=== PATIENT | female | born 1995 | race African-American/Black ===

== ENCOUNTER 2017-03-02 13:14 | Emergency (ER) | payer SELFPAY ==
[2017-03-02 13:20] VITALS: BMI 24.7
[2017-03-02] MEDS ORDERED: ONDANSETRON 4 MG/2 ML VIAL IVPUSH ONE ×2 (13:46→15:03)
[2017-03-02] MEDS ORDERED: SODIUM CHLORIDE 1,000 ML IV STA (13:46)
[2017-03-02] MEDS ORDERED: FAMOTIDINE IV 20 MG/12 ML VIAL IVPUSH ONE (13:46)
[2017-03-02] MEDS ORDERED: ONDANSETRON 4 MG/2 ML VIAL ONE ×2 (13:49→15:05)
[2017-03-02] MEDS ORDERED: FAMOTIDINE 20 MG/50 ML IVPB 20 MG/50 ML MG IVPB ONE (13:49)
--- NOTE | 2017-03-02 13:56 | PDOC ---
History of Present Illness - General Chief Complaint: Nausea/Vomiting Stated Complaint: VOMITING Time Seen by Provider: 03/02/17 13:43 History Source: Patient - History of Present Illness Timing/Duration: reports: other (this am) Quality: reports: severe Abdominal Pain Onset Location: reports: epigastric Past History - Past Medical History Allergies/Adverse Reactions: Allergies Allergy/AdvReac Type Severity Reaction Status Date / Time No Known Allergies Allergy Verified 03/02/17 13:20 Home Medications: Ambulatory Orders Ondansetron HCl [Zofran] 4 mg PO Q8H #12 tablet 03/02/17 CVA: No COPD: No DVT: No - Reproductive History Therapeutic (s) & number: Yes (2) - Immunization History Immunization Up to Date: Yes (no flu shot) - Suicide/Smoking/Psychosocial Hx Smoking History: Never smoked Have you smoked in the past 12 months: No Hx Alcohol Use: Yes (SOCIAL) Drug/Substance Use Hx: No Substance Use Type: None Abd/GI Specific PMHX - Complaint Specific PMHX Colitis: No Diverticulitis: No Gall Bladder Disease: No GERD: No Hepatitis: No Irritable Bowel Synd (IBS): No Pancreatitis: No GI Ulcer Disease: No Review of Systems - Review of Systems Constitutional: No: Chills, Fever ABD/GI: Yes: Nausea, Vomiting. No: Constipated, Diarrhea *Physical Exam - Vital Signs Last Vital Signs Temp Pulse Resp BP Pulse Ox 76 26 H 143/94 100 03/02/17 13:15 03/02/17 13:15 03/02/17 13:15 03/02/17 13:15 - Physical Exam Comments: 03/02/17 13:56 Pt appears very uncomfortable and actively vomiting into an emesis bag General Appearance: Yes: Appropriately Dressed, Severe Distress Neck: positive: Supple Respiratory/Chest: positive: Lungs Clear, Normal Breath Sounds. negative: Respiratory Distress Cardiovascular: positive: Regular Rate, S1, S2 Gastrointestinal/Abdominal: positive: Normal Bowel Sounds, Tender. negative: Distended, Guarding, Rebound Musculoskeletal: negative: CVA Tenderness Integumentary: positive: Dry, Warm Neurologic: positive: Fully Oriented, Alert, Normal Mood/Affect ED Treatment Course - LABORATORY CBC & Chemistry Diagram: 03/02/17 14:00 03/02/17 14:00 Medical Decision Making - Medical Decision Making 03/02/17 13:54 22-year-old female, denies any past medical history here with severe upper abdominal pain with intractable nausea, vomiting since 8:00 this morning. Patient states she went out drinking last night and had "a lot of Bell" and "feels hung over" per patient. No hematemesis, change in bowel movements, fever or chills See exam N/V m/l 2/2 ETOH use Review vomiting in ED, no hematemesis with positive tenderness to palpation to epigastrium -Pain control, Zofran, fluids -Basic labs -Reassess 03/02/17 15:11 Utox positive for marijuana. Rest of labs unremarkable. Will continue to manage patient's symptoms in ER 03/02/17 16:28 Pt significantly improved with meds in ED and able to tolerate po. Will discharge with supportive treatment. Reasons to return discussed with patient *DC/Admit/Observation/Transfer Diagnosis at time of Disposition: Nausea and vomiting Qualifiers: Vomiting type: unspecified Vomiting Intractability: non-intractable Qualified Code(s): R11.2 - Nausea with vomiting, unspecified - Discharge Dispostion Disposition: HOME Condition at time of disposition: Improved - Prescriptions Prescriptions: Ondansetron HCl [Zofran] 4 mg PO Q8H #12 tablet - Referrals Referrals: George Garcia MD [Primary Care Provider] - - Patient Instructions Printed Discharge Instructions: DI for Vomiting -- Adult Additional Instructions: Your symptoms possibly secondary to excessive alcohol intake versus marijuana found on your urine screen. Daily marijuana use and cause cyclical nausea, vomiting, and it is strongly recommended that you stop using. Also limit your alcohol intake in the future to prevent recurrent symptoms. Rest and plenty of fluids and take Zofran as needed for nausea, vomiting. If symptoms worsen, return to ER - Post Discharge Activity Forms/Work/School Notes: Back to Work
[2017-03-02 14:04] LABS: EOS % 0.4 % (0-4.5); HEMATOCRIT 40.5 % (32.4-45.2); HEMOGLOBIN 13.6 GM/dL (10.7-15.3); LYMPH % 17.5 % (8-40); MCH 28.3 pg (25.7-33.7); MCHC 33.5 g/dl (32.0-36.0); MEAN CELL VOLUME 84.4 fl (80-96); MEAN PLT VOLUME 9.4 fl (7.5-11.1); MONO % 3.7 % (3.8-10.2); NEUT % 77.4 % (42.8-82.8); PLATELET COUNT 228 K/MM3 (134-434); RDW 13.6 % (11.6-15.6); WHITE BLOOD COUNT 6.9 K/mm3 (4.0-10.0)
--- NOTE | 2017-03-02 14:14 | PDOC ---
*Physical Exam - Vital Signs Last Vital Signs Temp Pulse Resp BP Pulse Ox 76 26 H 143/94 100 03/02/17 13:15 03/02/17 13:15 03/02/17 13:15 03/02/17 13:15 ED Treatment Course - LABORATORY CBC & Chemistry Diagram: 03/02/17 14:00 03/02/17 14:00 - ADDITIONAL ORDERS Additional order review: 03/02/17 14:00 RBC 4.80 MCV 84.4 MCHC 33.5 RDW 13.6 MPV 9.4 Neutrophils % 77.4 Lymphocytes % 17.5 D Monocytes % 3.7 L Eosinophils % 0.4 D Basophils % 1.0 - Medications Given in the ED: ED Medications Discontinued Medications Generic Name Dose Route Start Last Admin Trade Name Carlin PRN Reason Stop Dose Admin Famotidine 20 mg in 12 mls @ 144 mls/hr 03/02/17 13:46 03/02/17 14:02 Pepcid 20 Mg/12 Ml Push IVPUSH 03/02/17 13:50 144 mls/hr ONCE ONE Administration Ondansetron HCl 4 mg 03/02/17 13:46 03/02/17 14:02 Zofran Injection IVPUSH 03/02/17 13:47 4 mg ONCE ONE Administration Medical Decision Making - Medical Decision Making 03/02/17 14:13 Pt seen by the Advanced Practice Provider under my direct supervision Ancillary studies reviewed I agree with plan as outlined by the Advanced Practice Provider RUSSELL Segura *DC/Admit/Observation/Transfer - Referrals Referrals: George Garcia MD [Primary Care Provider] - - Patient Instructions - Post Discharge Activity
[2017-03-02] MEDS ORDERED: LORazepam 1 MG TABLET PO ONE (14:23)
[2017-03-02] MEDS ORDERED: LORazepam 0.5 MG TABLET ONE (14:27)
[2017-03-02 14:34] LABS: ALK PHOS 62 U/L (45-117); ANION GAP 13 (8-16); BILIRUBIN,TOTAL 0.6 mg/dL (0.2-1.0); BLOOD UREA NITROGEN 11 mg/dL (7-18); CALCIUM 8.7 mg/dL (8.5-10.1); CHLORIDE 109 mmol/L (98-107); CO2 19 mmol/L (21-32); CREATININE 0.7 mg/dL (0.55-1.02); GLUCOSE,RANDOM 103 mg/dL (74-106); SGPT/ALT 25 U/L (12-78); SODIUM 141 mmol/L (136-145); TOT PROT 7.8 g/dl (6.4-8.2)
[2017-03-02 14:36] LABS: POTASSIUM 3.7 mmol/L (3.5-5.1)
[2017-03-02 14:37] LABS: SGOT/AST 28 U/L (15-37)
[2017-03-02 14:40] LABS: PLATELET ESTIMATE ADEQUATE
[2017-03-02] MEDS ORDERED: morphine CARPU-JECT 4 MG/1 ML DISP.SYRIN IVPUSH ONE (14:52)
[2017-03-02] MEDS ORDERED: morphine CARPU-JECT 10 MG/1 ML DISP.SYRIN ONE (14:55)
[2017-03-02 15:03] LABS: COCAINE, UR NEGATIVE ng/ml (CUTOFF=300); METHADONE, UR NEGATIVE ng/ml (CUTOFF=300); OPIATES, URI NEGATIVE ng/ml (CUTOFF=300); PHENCYCLIDINE,URINE NEGATIVE ng/ml (CUTOFF=25); URINE AMPHETAMINES NEGATIVE ng/ml (CUTOFF=500); URINE BARBITURATES NEGATIVE ng/ml (CUTOFF=200); URINE BENZODIAZEPINES NEGATIVE ng/ml (CUTOFF=200)
[2017-03-02 15:11] LABS: LIPASE 92 U/L (73-393)
[2017-03-02 16:54] VITALS: BP 105/63; PULSE 80
== END 2017-03-02 16:53 | disposition home or self-care (01) ==
LOC: JER 13:14
PROC: 3E033NZ Introduction of Analgesics, Hypnotics, Sedatives into Peripheral Vein, Percutaneous Approach (ICD-10-PCS; principal; 2017-03-02)
PROC: 3E033GC Introduction of Other Therapeutic Substance into Peripheral Vein, Percutaneous Approach (ICD-10-PCS; 2017-03-02)
PROC: 3E033GC Introduction of Other Therapeutic Substance into Peripheral Vein, Percutaneous Approach (ICD-10-PCS; 2017-03-02)
PROC: 3E033GC Introduction of Other Therapeutic Substance into Peripheral Vein, Percutaneous Approach (ICD-10-PCS; 2017-03-02)
DX: R11.2 Nausea with vomiting, unspecified (principal); F12.10 Cannabis abuse, uncomplicated; F10.10 Alcohol abuse, uncomplicated
CPT/HCPCS: 36415; 80053; 80307; 83690; 84703; 85025; 99282-25

== ENCOUNTER 2017-06-14 11:31 | Emergency (ER) | payer SELFPAY ==
[2017-06-14 11:37] VITALS: BMI 27.1
[2017-06-14] MEDS ORDERED: SODIUM CHLORIDE 1,000 ML IV STA ×2 (12:05→14:59)
[2017-06-14] MEDS ORDERED: ONDANSETRON 4 MG/2 ML VIAL IVPUSH ONE (12:05)
[2017-06-14] MEDS ORDERED: FAMOTIDINE IV 20 MG/12 ML VIAL IVPB ONE (12:05)
--- NOTE | 2017-06-14 12:06 | PDOC ---
History of Present Illness - General Chief Complaint: Pain Stated Complaint: Nausea/Vomiting Time Seen by Provider: 06/14/17 11:48 History Source: Patient Exam Limitations: No Limitations - History of Present Illness Initial Comments: 06/14/17 12:12 Patient is a 22-year-old female with PMH of cyclical vomiting, who presents emergency department today complaining of nausea and vomiting. 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 Patient states that she also smoked marijuana last night. Admits to abdominal pain, nausea, vomiting. Denies fevers, chills, shortness of breath, frequency, urgency, hematuria, diarrhea and constipation. Past History - Travel Traveled outside of the country in the last 30 days: No Close contact w/someone who was outside of country & ill: No - Past Medical History Allergies/Adverse Reactions: Allergies Allergy/AdvReac Type Severity Reaction Status Date / Time No Known Allergies Allergy Verified 06/14/17 11:33 Home Medications: Ambulatory Orders Famotidine [Pepcid -] 40 mg PO DAILY #14 tablet 04/13/17 Ondansetron [Zofran *Odt*] 8 mg SL TID PRN #30 od.tablet 04/13/17 CVA: No COPD: No DVT: No - Reproductive History Therapeutic (s) & number: Yes (2) - Immunization History Immunization Up to Date: Yes (no flu shot) - Suicide/Smoking/Psychosocial Hx Smoking History: Never smoked Have you smoked in the past 12 months: No Information on smoking cessation initiated: No Hx Alcohol Use: No Drug/Substance Use Hx: No Substance Use Type: Marijuana Review of Systems - Review of Systems Able to Perform ROS?: Yes Comments:: 06/14/17 12:04 CONSTITUTIONAL: Absent: fever, chills, diaphoresis, generalized weakness, malaise, loss of appetite HEENT: Absent: rhinorrhea, nasal congestion, throat pain, throat swelling, difficulty swallowing, mouth swelling, ear pain, eye pain, visual Changes CARDIOVASCULAR: Absent: chest pain, loss of consciousness, palpitations, irregular heart rate, peripheral edema RESPIRATORY: Absent: cough, shortness of breath, dyspnea with exertion, orthopnea, wheezing, stridor, hemoptysis GASTROINTESTINAL: Present: abdominal pain, nausea, vomiting Absent: abdominal pain, abdominal distension, nausea, vomiting, diarrhea, constipation, melena, hematochezia GENITOURINARY: Absent: dysuria, frequency, urgency, hesitancy, hematuria, flank pain, genital pain MUSCULOSKELETAL: Absent: myalgia, arthralgia, joint swelling SKIN: Absent: rash, itching, pallor HEMATOLOGIC/IMMUNOLOGIC: Absent: easy bleeding, easy bruising, lymphadenopathy, frequent infections ENDOCRINE: Absent: unexplained weight gain, unexplained weight loss, heat intolerance, cold intolerance NEUROLOGIC: Absent: headache, focal weakness or paresthesias, dizziness, unsteady gait, seizure, mental status changes, bladder or bowel incontinence PSYCHIATRIC: Absent: anxiety, depression, suicidal or homicidal ideation, hallucinations. Is the patient limited Chadian proficient: No *Physical Exam - Vital Signs Last Vital Signs Temp Pulse Resp BP Pulse Ox 98.4 F 56 L 18 153/89 100 06/14/17 11:33 06/14/17 11:33 06/14/17 11:33 06/14/17 11:33 06/14/17 11:33 - Physical Exam Comments: 06/14/17 12:04 GENERAL: Well developed, well nourished. Awake and alert. Mild distress, actively vomiting in the ED HEENT: Normocephalic, atraumatic. PERRLA, EOMI. No conjunctival pallor. Sclera are non- icteric. Moist mucous membranes. Oropharynx is clear. NECK: Supple. Full ROM. No JVD. Carotid pulses 2+ and symmetric, without bruits. No thyromegaly. No lymphadenopathy. CARDIOVASCULAR: Regular rate and rhythm. No murmurs, rubs, or gallops. Distal pulses are 2+ and symmetric. PULMONARY: No evidence of respiratory distress. Lungs clear to auscultation bilaterally. No wheezing, rales or rhonchi. ABDOMINAL: Soft. Diffuse tenderness with no focal findings. Non-distended. No rebound or guarding. No organomegaly. Normoactive bowel sounds. MUSCULOSKELETAL Normal range of motion at all joints. No bony deformities or tenderness. No CVA tenderness. EXTREMITIES: No cyanosis. No clubbing. No edema. No calf tenderness. SKIN: Warm and dry. Normal capillary refill. No rashes. No jaundice. NEUROLOGICAL: Alert, awake, appropriate. Cranial nerves 2-12 intact. No deficits to light touch and temperature in face, upper extremities and lower extremities. No motor deficits in the in face, upper extremities and lower extremities. Normoreflexic in the upper and lower extremities. Normal speech. Toes are down- going bilaterally. Gait is normal without ataxia. PSYCHIATRIC: Cooperative. Good eye contact. Appropriate mood and affect. ED Treatment Course - LABORATORY CBC & Chemistry Diagram: 06/14/17 12:05 06/14/17 12:10 Medical Decision Making - Medical Decision Making 06/14/17 12:15 Patient is a 22-year-old female with past medical history of marijuana abuse, cyclical vomiting, who presents to the emergency department today complaining of nausea and vomiting since 7 AM. Patient actively vomiting bright yellow bile at this time, no focal abdominal tenderness on exam. Given the context of sick children and marijuana use most likely a viral gastroenteritis amplified by marijuana use. We will order basic labs and medications to treat symptoms. Reevaluate. Informed patient that she needs to stop smoking marijuana as this is most likely causing her pain. Pt. states that marijuana has never made her feel like this before. 06/14/17 15:30 Patient still complaining of abdominal pain nausea and vomiting despite treatment with Pepcid, Reglan, Benadryl, Zofran, Toradol and ofirmev. Patient observed in the holding area sleeping prior to arrival to check on her. Other staff members have also observed her sleeping. Nursing noticed her stick her hand on her throat to try and make herself vomit. At this time given cyclic vomiting, will give Haldol and Ativan to relieve her symptoms. 06/14/17 18:32 Patient sleeping in the emergency department. No further episodes of vomiting. May be discharged when patient is awake. 06/14/17 19:00 sign out given to RUSSELL Mckeon. Pt may be discharged when awake *DC/Admit/Observation/Transfer Diagnosis at time of Disposition: Nausea and vomiting Qualifiers: Vomiting type: cyclical vomiting Vomiting Intractability: non-intractable Qualified Code(s): G43.A0 - Cyclical vomiting, not intractable - Discharge Dispostion Disposition: HOME Condition at time of disposition: Stable Admit: No - Referrals Referrals: James Garcia MD [Primary Care Provider] - - Patient Instructions Printed Discharge Instructions: DI for Vomiting -- Adult Additional Instructions: Stop smoking marijuana. Please drink plenty of fluids. Eat bland diet for the next couple days including bananas, applesauce, toast, rice. Avoid all dairy products until 48 hours after vomiting. Please follow-up with your primary care doctor. Return to the emergency department if you have worsening vomiting, worsening abdominal pain, fevers, or have any changes in your symptoms. - Post Discharge Activity Forms/Work/School Notes: Back to Work
[2017-06-14] MEDS ORDERED: ONDANSETRON 4 MG/2 ML VIAL ONE (12:11)
[2017-06-14] MEDS ORDERED: FAMOTIDINE 20 MG/50 ML IVPB 20 MG/50 ML MG IVPB ONE (12:11)
[2017-06-14 12:24] LABS: BASO % 0.9 % (0-2.0); HEMATOCRIT 39.6 % (32.4-45.2); HEMOGLOBIN 13.7 GM/dL (10.7-15.3); LYMPH % 14.8 % (8-40); MCH 29.3 pg (25.7-33.7); MCHC 34.7 g/dl (32.0-36.0); MEAN CELL VOLUME 84.6 fl (80-96); MEAN PLT VOLUME 9.5 fl (7.5-11.1); MONO % 2.7 % (3.8-10.2); NEUT % 81.6 % (42.8-82.8); PLATELET COUNT 204 K/MM3 (134-434); RBC 4.68 M/mm3 (3.60-5.2); RDW 15.7 % (11.6-15.6)
[2017-06-14 12:37] LABS: INR 1.04 (0.82-1.09); PROTHROMBIN TIME (PATIENT) 11.7 SEC (9.7-13.0)
[2017-06-14] MEDS ORDERED: METOCLOPRAMIDE HCL INJECTION 10 MG/2 ML VIAL IVPB ONE (12:42)
[2017-06-14 12:48] LABS: ANION GAP 10 (8-16); BILIRUBIN,TOTAL 0.7 mg/dL (0.2-1.0); BLOOD UREA NITROGEN 11 mg/dL (7-18); CALCIUM 8.8 mg/dL (8.5-10.1); CHLORIDE 112 mmol/L (98-107); CO2 20 mmol/L (21-32); CREATININE 0.9 mg/dL (0.55-1.02); GLUCOSE,RANDOM 144 mg/dL (74-106); LIPASE 93 U/L (73-393); POTASSIUM 3.5 mmol/L (3.5-5.1); SGOT/AST 24 U/L (15-37); SGPT/ALT 21 U/L (12-78); SODIUM 142 mmol/L (136-145); TOT PROT 7.8 g/dl (6.4-8.2)
[2017-06-14 12:50] LABS: ALK PHOS 60 U/L (45-117)
[2017-06-14] MEDS ORDERED: ACETAMINOPHEN 1000 MG/100 ML VIAL (NON FORMULARY) IVPB ONE (12:57)
[2017-06-14] MEDS ORDERED: METOCLOPRAMIDE HCL INJECTION 10 MG/2 ML VIAL ONE (13:01)
[2017-06-14] MEDS ORDERED: ACETAMINOPHEN INJECTION 100 ML IVPB ONE (13:01)
[2017-06-14 13:33] LABS: URINE APPEARANCE CLEAR; URINE BILIRUBIN NEGATIVE (<2.0 mg/dL); URINE BLOOD NEGATIVE (NEGATIVE); URINE COLOR LTYELLOW; URINE GLUCOSE (UA) NEGATIVE (NEGATIVE); URINE KETONE TRACE (NEGATIVE); URINE LEUK ESTERASE NEGATIVE (NEGATIVE); URINE NITRITE NEGATIVE (NEGATIVE); URINE PROTEIN NEGATIVE (NEGATIVE); URINE UROBILINOGEN NEGATIVE mg/dL (0.2-1.0)
[2017-06-14] MEDS ORDERED: KETOROLAC TROMETHAMINE 30 MG/1 ML VIAL IVPUSH ONE (14:19)
[2017-06-14] MEDS ORDERED: KETOROLAC TROMETHAMINE 30 MG/1 ML VIAL ONE (14:32)
[2017-06-14] MEDS ORDERED: MAG HYDROX/AL HYDROX/SIMETH 30 ML UNIT-DOSE CUP PO ONE (15:02)
[2017-06-14] MEDS ORDERED: HALOPERIDOL LACTATE 5 MG/ML IM ONE (15:02)
[2017-06-14] MEDS ORDERED: HALOPERIDOL LACTATE 5 MG/ML ONE (15:19)
[2017-06-14] MEDS ORDERED: MAG HYDROX/AL HYDROX/SIMETH 30 ML UNIT-DOSE CUP ONE (15:20)
[2017-06-14 17:20] VITALS: BP 138/67; PULSE 59; TEMP 98.1
--- NOTE | 2017-06-15 11:32 | EKG ---
Test Reason : Blood Pressure : / mmHG Vent. Rate : 058 BPM Atrial Rate : 058 BPM P-R Int : 158 ms QRS Dur : 078 ms QT Int : 460 ms P-R-T Axes : 016 072 079 degrees QTc Int : 451 ms SINUS BRADYCARDIA WITH SINUS ARRHYTHMIA OTHERWISE NORMAL ECG NO PREVIOUS ECGS AVAILABLE Confirmed by MAR BELTRAN, ELMA ([id number]) on 06/15/2017 11:31:43 AM Referred By: Confirmed By:ELMA MANUEL MD
== END 2017-06-15 01:08 | disposition home or self-care (01) ==
LOC: JER 11:31
PROC: 3E0337Z Introduction of Electrolytic and Water Balance Substance into Peripheral Vein, Percutaneous Approach (ICD-10-PCS; principal; 2017-06-14)
PROC: 3E033NZ Introduction of Analgesics, Hypnotics, Sedatives into Peripheral Vein, Percutaneous Approach (ICD-10-PCS; 2017-06-14)
PROC: 3E033GC Introduction of Other Therapeutic Substance into Peripheral Vein, Percutaneous Approach (ICD-10-PCS; 2017-06-14)
PROC: 3E023GC Introduction of Other Therapeutic Substance into Muscle, Percutaneous Approach (ICD-10-PCS; 2017-06-14)
DX: G43.A0 Cyclical vomiting, in migraine, not intractable (principal)
CPT/HCPCS: 36415; 80053; 81003; 83690; 84702; 85025; 85610; 87086; 93005; 93010; 99283-25; J0131; J7030

== ENCOUNTER 2017-08-11 07:20 | Emergency (ER) | payer SELFPAY ==
[2017-08-11 07:30] VITALS: BMI 23.8
[2017-08-11] MEDS ORDERED: HALOPERIDOL LACTATE 5 MG/ML IM ONE ×2 (07:43→08:18)
[2017-08-11] MEDS ORDERED: METOCLOPRAMIDE HCL INJECTION 10 MG/2 ML VIAL IVPUSH ONE (07:46)
[2017-08-11] MEDS ORDERED: SODIUM CHLORIDE 1,000 ML IV STA (07:46)
[2017-08-11] MEDS ORDERED: METOCLOPRAMIDE HCL INJECTION 10 MG/2 ML VIAL ONE (07:49)
[2017-08-11] MEDS ORDERED: FAMOTIDINE 20 MG/50 ML IVPB 20 MG/50 ML MG IVPB ONE ×2 (07:57→08:04)
[2017-08-11 08:00] LABS: BASO % 0.7 % (0-2.0); EOS % 0.1 % (0-4.5); HEMATOCRIT 38.9 % (32.4-45.2); HEMOGLOBIN 13.8 GM/dL (10.7-15.3); LYMPH % 17.7 % (8-40); MCH 29.9 pg (25.7-33.7); MCHC 35.5 g/dl (32.0-36.0); MEAN CELL VOLUME 84.4 fl (80-96); MEAN PLT VOLUME 9.2 fl (7.5-11.1); MONO % 4.6 % (3.8-10.2); NEUT % 76.9 % (42.8-82.8); PLATELET COUNT 215 K/MM3 (134-434); RDW 14.2 % (11.6-15.6); WHITE BLOOD COUNT 7.3 K/mm3 (4.0-10.0)
--- NOTE | 2017-08-11 08:11 | PDOC ---
History of Present Illness - General Chief Complaint: Pain, Acute Stated Complaint: ABDOMINAL PAIN Time Seen by Provider: 08/11/17 07:40 History Source: Patient Exam Limitations: No Limitations - History of Present Illness Initial Comments: 08/11/17 08:11 Patient is a 22F with history of cyclic vomiting here today complaining of vomiting and epigastric abdominal pain for the past two days. Denies fevers, chills. Patient is requesting a test. She describes her pain as epigastric after vomiting. Patient endorses smoking marijuana every day. Her symptoms are relieved with showers. Denies pain with urination. Past History - Past Medical History Allergies/Adverse Reactions: Allergies Allergy/AdvReac Type Severity Reaction Status Date / Time No Known Allergies Allergy Verified 08/11/17 07:27 Home Medications: Ambulatory Orders Nitrofurantoin Monohyd/M-Cryst [Nitrofurantoin [place]-Mcr 100 mg] 100 mg PO BID # 14 capsule 08/11/17 Ondansetron [Zofran *Odt*] 8 mg SL BID PRN #21 od.tablet 08/11/17 CVA: No COPD: No DVT: No Other medical history: DENIES - Reproductive History Therapeutic (s) & number: Yes (2) - Immunization History Immunization Up to Date: Yes (no flu shot) - Suicide/Smoking/Psychosocial Hx Smoking History: Never smoked Have you smoked in the past 12 months: No Hx Alcohol Use: No Drug/Substance Use Hx: No Substance Use Type: Marijuana Review of Systems - Review of Systems Comments:: 08/11/17 08:14 GENERAL/CONSTITUTIONAL: No fever or chills. No weakness. HEAD, EYES, EARS, NOSE AND THROAT: No change in vision. No sore throat. CARDIOVASCULAR: No chest pain or shortness of breath RESPIRATORY: No cough, wheezing, or hemoptysis. GASTROINTESTINAL: + nausea, vomiting, diarrhea. GENITOURINARY: No dysuria, frequency, or change in urination. MUSCULOSKELETAL: No joint or muscle swelling or pain. No neck or back pain. SKIN: No rash NEUROLOGIC: No headache, vertigo, loss of consciousness, or change in strength/ sensation. ENDOCRINE: No increased thirst. No abnormal weight change ALLERGIC/IMMUNOLOGIC: No hives or skin allergy. *Physical Exam - Vital Signs Last Vital Signs Temp Pulse Resp BP Pulse Ox 97.9 F 104 H 20 118/52 97 08/11/17 07:27 08/11/17 07:27 08/11/17 07:27 08/11/17 07:27 08/11/17 07:27 - Physical Exam Comments: 08/11/17 08:15 GENERAL: Awake, alert, and fully oriented, vomiting into bag HEAD: No signs of trauma, normocephalic, atraumatic EYES: PERRLA, EOMI, sclera anicteric, conjunctiva clear ENT: Auricles normal inspection, hearing grossly normal, nares patent, oropharynx clear without exudates. Moist mucosa NECK: Normal ROM, supple, no lymphadenopathy, JVD, or masses LUNGS: No distress, speaks full sentences, clear to auscultation bilaterally HEART: Regular rate and rhythm, normal S1 and S2, no murmurs, rubs or gallops, peripheral pulses normal and equal bilaterally. ABDOMEN: Soft, nontender, normoactive bowel sounds. No guarding, no rebound. No masses EXTREMITIES: Normal inspection, Normal range of motion, no edema. No clubbing or cyanosis. NEUROLOGICAL: Cranial nerves II through XII grossly intact. Normal speech, normal gait, no focal sensorimotor deficits SKIN: Warm, Dry, normal turgor, no rashes or lesions noted. ED Treatment Course - LABORATORY CBC & Chemistry Diagram: 08/11/17 07:52 08/11/17 07:52 - ADDITIONAL ORDERS Additional order review: 08/11/17 07:52 RBC 4.60 MCV 84.4 MCHC 35.5 RDW 14.2 MPV 9.2 Neutrophils % 76.9 Lymphocytes % 17.7 Monocytes % 4.6 Eosinophils % 0.1 D Basophils % 0.7 - Medications Given in the ED: ED Medications Discontinued Medications Generic Name Dose Route Start Last Admin Trade Name Freq PRN Reason Stop Dose Admin Metoclopramide HCl 10 mg 08/11/17 07:46 08/11/17 07:57 Reglan Injection - IVPUSH 08/11/17 07:47 10 mg ONCE ONE Administration Medical Decision Making - Medical Decision Making 08/11/17 08:16 Patient is 22F with history of cyclic vomiting here today with vomiting. Vital signs notable for tachycardia. Differential is weighted towards cyclic vomiting , will also evaluate for , pancreatitis, electrolyte abnormalities. Will workup with abdominal labs, reglan. After initial treatment, patient still in distress. Patient's old EKG shows normal QTc. Will give 5 haldol IM. 08/11/17 09:43 Laboratory Tests 08/11/17 08/11/17 08/11/17 07:52 07:52 08:36 WBC 7.3 Hgb 13.8 Plt Count 215 BUN 7 Creatinine 0.7 Serum , Qual Positive Urine Nitrite Ur Leukocyte Esterase Urine WBC (Auto) Ur Epithelial Cells 08/11/17 08:38 WBC Hgb Plt Count BUN Creatinine Serum , Qual Urine Nitrite Negative Ur Leukocyte Esterase Trace Urine WBC (Auto) 8 Ur Epithelial Cells Moderate CBC normal. UA shows possible UTI, will cover given status. CMP reassuring. Beta-quant added, patient still complaining of nausea, given zofran. Patient complaining of diffuse abdominal pain, given tylenol IV. No vaginal bleeding, no need for type and screen at this time. 08/11/17 10:34 Patient reassessed, resting comfortably but still complaining of nausea. [facility] [place] 42k, will do tvus to r/o ectopic. 08/11/17 11:48 TVUS shows single live IUP [id number]. Will PO challenge and discharge with zofran. 08/11/17 11:52 Passed PO challenge. *DC/Admit/Observation/Transfer Diagnosis at time of Disposition: Nausea and vomiting, - Discharge Dispostion Condition at time of disposition: Good Decision to Admit order: No - Prescriptions Prescriptions: Nitrofurantoin Monohyd/M-Cryst [Nitrofurantoin [place]-Mcr 100 mg] 100 mg PO BID # 14 capsule Ondansetron [Zofran *Odt*] 8 mg SL BID PRN #21 od.tablet PRN Reason: Nausea - Referrals Referrals: James Garcia MD [Primary Care Provider] - Luann Celaya MD [Staff Physician] - - Patient Instructions Printed Discharge Instructions: DI for Urinary Tract Infection (UTI) Additional Instructions: You were seen today in the ED for vomiting. You are . You are 6 weeks, 2 days along at this time. Please follow up with OBGYN. You have been prescribed antibiotics for a UTI, please take the antibiotics as prescribed. Please complete the course of antibiotics even if you feel better. Please refrain for marijuana use. Please return if you have any new, worsening or concerning symptoms. - Post Discharge Activity
[2017-08-11] MEDS ORDERED: HALOPERIDOL LACTATE 5 MG/ML ONE (08:20)
[2017-08-11 08:26] LABS: ALK PHOS 52 U/L (45-117); ANION GAP 13 (8-16); BILIRUBIN,TOTAL 0.9 mg/dL (0.2-1.0); BLOOD UREA NITROGEN 7 mg/dL (7-18); CALCIUM 9.6 mg/dL (8.5-10.1); CHLORIDE 104 mmol/L (98-107); CO2 20 mmol/L (21-32); CREATININE 0.7 mg/dL (0.55-1.02); GLUCOSE,RANDOM 131 mg/dL (74-106); LIPASE 76 U/L (73-393); POTASSIUM 3.4 mmol/L (3.5-5.1); SGOT/AST 19 U/L (15-37); SGPT/ALT 21 U/L (12-78); SODIUM 137 mmol/L (136-145); TOT PROT 8.1 g/dl (6.4-8.2)
--- NOTE | 2017-08-11 08:50 | PDOC ---
Attending Attestation - HPI HPI: 08/11/17 09:24 The patient is a 22 year old female with a significant past medical history of cyclic vomiting who presents to the emergency department for evaluation of epigastric pain. The patient reports intermittent episodes of severe epigastric pain with associated NBNB emesis for 2 days. The patient describes the pain as localized, ranked 8/10 in severity. She reports associated symptoms of palpitations, nausea, and diarrhea. She states her symptoms are alleviated with her showers. The patient admits to smoking marijuana daily. Of note, the patient requests a test. The patient denies chest pain, shortness of breath, headache, fever, chills, dysuria, hematuria, urinary frequency, and urgency. Allergies: NKDA Social History: Everyday marijuana use. No reported cigarette smoking or alcohol consumption. Surgical History: PCP: Dr. James Garcia ([phone]) - Medical Decision Making The patient is a 22 year old female with a significant past medical history of cyclic vomiting who presents to the emergency department for evaluation of epigastric pain. Plan: UA Test <Ulices De La Cruz - Last Filed: 08/11/17 09:24> - Resident Resident Name: Jason Hernandez - ED Attending Attestation I have performed the following: I have examined & evaluated the patient, The case was reviewed & discussed with the resident, I agree w/resident's findings & plan, Exceptions are as noted - Physicial Exam PE: 08/11/17 08:53 Vitals: Triage Vital signs reviewed General Appearance: mod acute distress, well nourished well developed, Cardiac: Regular rate and rhythym, no murmurs, no rubs, no gallops, Lungs: Clear to auscultation bilateral, good air movement bilaterally, Abdomen: Soft, non distended, normal bowel sounds, Diffuse upper abdominal tenderness, Mild, no gaurding , no rebound Extremities: Full range of motion to all extremities, no cyanosis, clubbing, or edema Skin: Warm and dry, no rashes or lesions, no rash, no petechiae Neuro: Strength intact to all extremities, Sensation intact to all extremities, gait normal Psych: normal mood, normal affect - Medical Decision Making History examination consistent with cyclic vomiting syndrome. No abdominal pain on examination. We'll treat with antiemetics IV fluids labs test and reassessed test positive ultrasound ordered Positive IUP. Patient still with some nausea and now tolerating fluids by mouth given patient advised to follow up with [facility] as well as Zofran for nausea Findings, need for follow-up and strict return instructions discussed with patient. <Junior Paniagua - Last Filed: 08/11/17 14:05> Attestations - Attestations Documentation prepared by Ulices De La Cruz, acting as medical writer for Junior Paniagua MD. <Ulices De La Cruz - Last Filed: 08/11/17 09:24>
[2017-08-11 08:52] LABS: URINE APPEARANCE SLCLOUDY; URINE BILIRUBIN NEGATIVE (<2.0 mg/dL); URINE COLOR YELLOW; URINE GLUCOSE (UA) NEGATIVE (NEGATIVE); URINE KETONE 2+ (NEGATIVE); URINE LEUK ESTERASE TRACE (NEGATIVE); URINE NITRITE NEGATIVE (NEGATIVE); URINE UROBILINOGEN NEGATIVE mg/dL (0.2-1.0)
[2017-08-11 09:07] LABS: URINE PROTEIN 1+ (NEGATIVE)
[2017-08-11 09:24] LABS: EPI CELLS MODERATE /HPF (FEW); URINE MUCUS FEW
[2017-08-11] MEDS ORDERED: ACETAMINOPHEN INJECTION 100 ML IVPB ONE (09:35)
[2017-08-11] MEDS ORDERED: ONDANSETRON 4 MG/2 ML VIAL IVPUSH ONE ×2 (09:35→11:52)
[2017-08-11] MEDS ORDERED: ONDANSETRON 4 MG/2 ML VIAL ONE ×2 (09:35→11:54)
[2017-08-11] MEDS ORDERED: ACETAMINOPHEN 1000 MG/100 ML VIAL (NON FORMULARY) IVPB ONE (09:35)
[2017-08-11] MEDS ORDERED: NITROFURANTOIN MACROCRYSTAL 50 MG CAPSULE (FP) PO SCH (09:45)
[2017-08-11] MEDS ORDERED: NITROFURANTOIN MACROCRYSTAL 50 MG CAPSULE (FP) ONE (09:46)
[2017-08-11 11:40] VITALS: BP 130/78; PULSE 53; TEMP 98.7
== END 2017-08-11 12:05 | disposition home or self-care (01) ==
LOC: JER 07:20
PROC: 3E0337Z Introduction of Electrolytic and Water Balance Substance into Peripheral Vein, Percutaneous Approach (ICD-10-PCS; principal; 2017-08-11)
PROC: 3E033GC Introduction of Other Therapeutic Substance into Peripheral Vein, Percutaneous Approach (ICD-10-PCS; 2017-08-11)
PROC: 3E023NZ Introduction of Analgesics, Hypnotics, Sedatives into Muscle, Percutaneous Approach (ICD-10-PCS; 2017-08-11)
PROC: 3E033NZ Introduction of Analgesics, Hypnotics, Sedatives into Peripheral Vein, Percutaneous Approach (ICD-10-PCS; 2017-08-11)
PROC: 3E033GC Introduction of Other Therapeutic Substance into Peripheral Vein, Percutaneous Approach (ICD-10-PCS; 2017-08-11)
DX: O26.891 Other specified pregnancy related conditions, first trimester (principal); O21.0 Mild hyperemesis gravidarum; Z3A.01 Less than 8 weeks gestation of pregnancy
CPT/HCPCS: 36415; 76817-TC; 80053; 81003; 81015; 83690; 84702; 84703; 85025; 99283-25; J0131; J7030

== ENCOUNTER 2017-11-10 15:53 | Emergency (ER) | payer OTHER ==
[2017-11-10 16:13] VITALS: TEMP 98.1; BMI 27.4
--- NOTE | 2017-11-10 16:24 | PDOC ---
History of Present Illness - General Chief Complaint: Nausea/Vomiting Stated Complaint: ABD PAIN Time Seen by Provider: 11/10/17 16:24 History Source: Patient, Old Records Exam Limitations: No Limitations - History of Present Illness Initial Comments: 22 y/o female presenting to [facility] via ambulance complaining of intense nausea and vomiting with diffuse abdominal pain since approx. 9a this morning. Describes the pain as sharp in nature but unable to localize. Unable to determine worsening factors. Symptoms improve with warm showers. Emesis described as nonbloody and nonbilious. Endorses EtOH intake last night as well as marijuana yesterday. Other members of household smoked marijuana today. This encounter is the 7th in this department for similar complaint since December 2016. Pt reports she has also been evaluated at [facility]. Requested morphine as it worked for her last month at [facility]. PCP: Jose Monroy Hx: - Pt denies past medical history. Takes an OCP. Surgical Hx: - Pt denies past surgical history. Past History - Past Medical History Allergies/Adverse Reactions: Allergies Allergy/AdvReac Type Severity Reaction Status Date / Time No Known Allergies Allergy Verified 08/11/17 07:27 Home Medications: Ambulatory Orders NK [No Known Home Medication] 11/10/17 CVA: No COPD: No DVT: No - Reproductive History Therapeutic (s) & number: Yes (2) - Immunization History Immunization Up to Date: Yes (no flu shot) - Suicide/Smoking/Psychosocial Hx Smoking History: Never smoked Have you smoked in the past 12 months: No Information on smoking cessation initiated: No Hx Alcohol Use: No Drug/Substance Use Hx: Yes ([facility]) Substance Use Type: Marijuana Abd/GI Specific PMHX - Complaint Specific PMHX Colitis: No Diverticulitis: No Gall Bladder Disease: No GERD: No Hepatitis: No Irritable Bowel Synd (IBS): No Pancreatitis: No GI Ulcer Disease: No Review of Systems - Review of Systems Able to Perform ROS?: Yes Comments:: In addition to that documented in the HPI above, the additional ROS was obtained : Constitutional: Denies fevers or chills Eyes: Denies vision changes ENMT: Denies sore throat CV: Denies chest pain Resp: Denies SOB GI: Denies diarrhea. Endorses vomiting. *Physical Exam - Vital Signs Last Vital Signs Temp Pulse Resp BP Pulse Ox 98.1 F 81 20 143/75 100 11/10/17 16:07 11/10/17 16:07 11/10/17 16:07 11/10/17 16:07 11/10/17 16:07 - Physical Exam Comments: Constitutional: Well-developed, well-nourished female in obvious discomfort. Found standing in exam room removing head from sink. Alert and oriented x4. Answered all questions appropriately and completely. Speech was pressured. HEENT: Normocephalic. No obvious external signs of trauma. Hearing grossly normal. No nasal discharge. Neck is supple, trachea is midline. Cardiovascular: Tachycardic rate and regular rhythm. No murmur, rubs, clicks, or gallops. Peripheral pulses: Radial pulses full. Respiratory: Breathing tachypnic, but labored. Equal chest rise and fall. Clear to auscultation bilaterally. No stridor, no wheezing, no rhonchi. Gastrointestinal: abdomen is diffusely tender without rebound or guarding; otherwise soft and non-distended. No hepatosplenemegaly. No pulsatile masses. No overlying skin lesions or obvious signs of trauma. Neuro: Alert and oriented. Moving all four extremities spontaneously. Gait normal, observed walking through the department. Skin: Diaphoretic but warm and intact. No bruising, rashes, or other lesions. No palpable nodules. : No R or L CVA tenderness. Psych: Affect: emotive. Mood: concerned. ED Treatment Course - LABORATORY CBC & Chemistry Diagram: 11/10/17 17:30 11/10/17 17:30 Medical Decision Making - Medical Decision Making *Reviewed vital signs, nursing notes, and prior visit documentation (if available). 22 y/o female complaining of nausea, vomiting, and generalized abdominal pain in history of similar episodes likely associated with marijuana use. Reports improvement with warm water. Afebrile. Vitals unremarkable. Suspect THC hyperemesis. Low suspicion for cyclic vomiting syndrome, gastritis, pancreatitis , hepatitis, biliary colic, cholecystitis. Very low suspicion for perforation. Ordered CBC, CMP, Lipase, UA, urine culture, and UDS. Ordered zofran, protonix, maalox, and NS IVFB for symptom relief. 17:19 On re-evaluation, pt has washed head in warm sink water and rolled hair into hospital towel. Reports feeling somewhat better. Breathing has slowed and behavior has calmed. She has not received any of the ordered medications yet. Pt requested water. Provided. No subsequent vomiting. CBC unremarkable for anemia or leukocytosis. CMP unremarkable for electrolyte derangement. LFTs not elevated. Lipase not elevated. Low suspicion for acute pancreatitis. UPreg negative. Low suspicion for ectopic or IUP. UA unremarkable for pyuria, leukocyte esterase, or nitrites. Low suspicion for UTI. Culture pending. UDS positive for marijuana. Continue to suspect THC hyperemesis as symptoms resolved in this department without medical intervention. Repeat abdominal exam is completely benign. Discomfort and nausea/vomiting have stopped. Pt requested work note for the next two days. Discussed laboratory results with pt. Answered all questions. Provided return precautions. Pt expressed verbal understanding and agreement with plan to discharge home with outpatient follow up. *DC/Admit/Observation/Transfer Diagnosis at time of Disposition: Nausea and vomiting Qualifiers: Vomiting type: unspecified Vomiting Intractability: unspecified Qualified Code( s): R11.2 - Nausea with vomiting, unspecified Abdominal pain Qualifiers: Abdominal location: generalized Qualified Code(s): R10.84 - Generalized abdominal pain - Discharge Dispostion Disposition: HOME Condition at time of disposition: Good Decision to Admit order: No - Referrals - Patient Instructions Printed Discharge Instructions: DI for Vomiting -- Adult Additional Instructions: Your blood work was normal today. This nausea and vomiting is likely because of marijuana. You need to stop using it! Follow up with your primary care physician within the next 3-4 days. You will need to call to make an appointment. Go to the nearest emergency department if your condition worsens or you feel like you need additional emergency evaluation. Print Language: GHANAIAN - Post Discharge Activity Forms/Work/School Notes: Back to Work
[2017-11-10] MEDS ORDERED: MAG HYDROX/AL HYDROX/SIMETH 30 ML UNIT-DOSE CUP PO ONE (17:03)
[2017-11-10] MEDS ORDERED: PANTOPRAZOLE SODIUM 40 MG VIAL IVPUSH ONE (17:05)
[2017-11-10] MEDS ORDERED: ONDANSETRON 4 MG/2 ML VIAL IVPB ONE (17:05)
[2017-11-10] MEDS ORDERED: SODIUM CHLORIDE 0.9% 500 ML INFUS.BAG IV ONE (17:06)
[2017-11-10] MEDS ORDERED: MAG HYDROX/AL HYDROX/SIMETH 30 ML UNIT-DOSE CUP ONE (17:24)
[2017-11-10] MEDS ORDERED: PANTOPRAZOLE SODIUM 40 MG VIAL ONE (17:25)
[2017-11-10] MEDS ORDERED: ONDANSETRON 4 MG/2 ML VIAL ONE (17:25)
[2017-11-10 17:55] LABS: BASO % 0.7 % (0-2.0); HEMATOCRIT 38.7 % (32.4-45.2); HEMOGLOBIN 13.1 GM/dL (10.7-15.3); LYMPH % 9.8 % (8-40); MCH 28.5 pg (25.7-33.7); MCHC 33.9 g/dl (32.0-36.0); MEAN CELL VOLUME 84.1 fl (80-96); MEAN PLT VOLUME 10.3 fl (7.5-11.1); MONO % 2.4 % (3.8-10.2); NEUT % 87.1 % (42.8-82.8); PLATELET COUNT 190 K/MM3 (134-434); RDW 14.2 % (11.6-15.6); WHITE BLOOD COUNT 7.9 K/mm3 (4.0-10.0)
[2017-11-10 17:57] LABS: URINE APPEARANCE CLEAR; URINE BILIRUBIN NEGATIVE (<2.0 mg/dL); URINE COLOR LTYELLOW; URINE GLUCOSE (UA) NEGATIVE (NEGATIVE); URINE KETONE 2+ (NEGATIVE); URINE LEUK ESTERASE NEGATIVE (NEGATIVE); URINE NITRITE NEGATIVE (NEGATIVE); URINE UROBILINOGEN NEGATIVE mg/dL (0.2-1.0)
[2017-11-10 17:58] LABS: URINE PROTEIN 1+ (NEGATIVE)
[2017-11-10 18:02] LABS: EPI CELLS RARE /HPF (FEW); URINE MUCUS RARE
[2017-11-10 18:22] LABS: ALBUMIN 3.7 g/dl (3.4-5.0); ALK PHOS 54 U/L (45-117); ANION GAP 10 MMOL/L (8-16); BLOOD UREA NITROGEN 11 mg/dL (7-18); CALCIUM 8.8 mg/dL (8.5-10.1); CHLORIDE 110 mmol/L (98-107); CO2 21 mmol/L (21-32); COCAINE, UR NEGATIVE ng/ml (CUTOFF=300); CREATININE 0.6 mg/dL (0.55-1.3); GLUCOSE,RANDOM 92 mg/dL (74-106); LIPASE 61 U/L (73-393); METHADONE, UR NEGATIVE ng/ml (CUTOFF=300); OPIATES, URI NEGATIVE ng/ml (CUTOFF=300); PHENCYCLIDINE,URINE NEGATIVE ng/ml (CUTOFF=25); POTASSIUM 4.4 mmol/L (3.5-5.1); SGOT/AST 30 U/L (15-37); SGPT/ALT 22 U/L (13-61); SODIUM 141 mmol/L (136-145); TOT PROT 7.5 g/dl (6.4-8.2); URINE AMPHETAMINES NEGATIVE ng/ml (CUTOFF=500); URINE BARBITURATES NEGATIVE ng/ml (CUTOFF=200); URINE BENZODIAZEPINES NEGATIVE ng/ml (CUTOFF=200)
--- NOTE | 2017-11-10 18:24 | PDOC ---
Attending Attestation - Resident Resident Name: Henri Barnes - ED Attending Attestation I have performed the following: I have examined & evaluated the patient, The case was reviewed & discussed with the resident, I agree w/resident's findings & plan, Exceptions are as noted - HPI HPI: 11/10/17 18:21 22 yo female reports drinlking alcohol last night and presents w complaint of nausea and vomiting - Physicial Exam PE: 11/10/17 18:22 wnwd 22 yo female head ncat neck supple lungs cta b/l cvs [id number] abd no rebound , no guarding ext no e/c/c no cva tenderness neuro axox3, no gross focal neuro deficits psych appropriate - Medical Decision Making 11/10/17 18:23 neg preg test cbc wnl pts symptom improved
[2017-11-10 18:57] VITALS: BP 101/58; PULSE 66
== END 2017-11-10 19:00 | disposition home or self-care (01) ==
LOC: JER 15:53
PROC: 3E033GC Introduction of Other Therapeutic Substance into Peripheral Vein, Percutaneous Approach (ICD-10-PCS; principal; 2017-11-10)
PROC: 3E033GC Introduction of Other Therapeutic Substance into Peripheral Vein, Percutaneous Approach (ICD-10-PCS; 2017-11-10)
DX: R10.84 Generalized abdominal pain (principal); F12.10 Cannabis abuse, uncomplicated
CPT/HCPCS: 36415; 80053; 80307; 81003; 81015; 83690; 84703; 85025; 87086; 96374; 96375; 99283-25

== ENCOUNTER 2018-03-01 16:52 | Emergency (ER) | payer OTHER ==
--- NOTE | 2018-03-01 17:01 | PDOC ---
Attending Attestation - HPI HPI: 03/01/18 21:54 The patient is a 23 year old female, with a significant PMH of alcohol abuse and marijuana use who presents to the emergency department with chills, nausea, vomiting, abdominal pain, and hand cramping since prior to arrival. Patient states she smokes marijuana daily but has also drinking heavily today. Patient admits to having similar symptoms whenever she drinks heavily. The patient denies chest pain, shortness of breath, headache and dizziness. Denies fever, chills, diarrhea and constipation. Denies dysuria, frequency, urgency and hematuria. Allergies: NKA Past surgical history: None reported. Social history: No reported cigarette use. Daily marijuana use. Daily alcohol use. <Cathy Ronquillo - Last Filed: 03/01/18 21:54> - Resident Resident Name: Chase Castañeda - ED Attending Attestation I have performed the following: I have examined & evaluated the patient, The case was reviewed & discussed with the resident, I agree w/resident's findings & plan, Exceptions are as noted - Physicial Exam PE: GENERAL: Awake, alert, and fully oriented. Anxious, hyperventilating. HEAD: No signs of trauma EYES: PERRLA, EOMI, sclera anicteric, conjunctiva clear ENT: Auricles normal inspection, hearing grossly normal, nares patent, oropharynx clear without exudates.Dry mucosa NECK: Normal ROM, supple, no lymphadenopathy, JVD, or masses LUNGS: Breath sounds equal, clear to auscultation bilaterally. No wheezes, and no crackles HEART: Regular rate and rhythm, normal S1 and S2, no murmurs, rubs or gallops ABDOMEN: Soft, nontender, normoactive bowel sounds. No guarding, no rebound. No masses EXTREMITIES: Hands in a clasped position B/L. Remainder of extremiteis with normal range of motion, no edema. No clubbing or cyanosis. No cords, erythema, or tenderness NEUROLOGICAL: Cranial nerves II through XII grossly intact. Normal speech. Motor and sensation intact SKIN: Warm, Dry, normal turgor, no rashes or lesions noted. - Medical Decision Making Pt with history of cannabis hyperemesis, alcohol abuse presents with epigastric abd pain, nausea, and multiple episodes of vomiting x1 day. Will treat with haldol IM, as well as zofran, IV fluids. <Joi Berrios - Last Filed: 03/02/18 09:51>
[2018-03-01] MEDS ORDERED: SODIUM CHLORIDE 1,000 ML IV STA (17:02)
[2018-03-01] MEDS ORDERED: ONDANSETRON 4 MG/2 ML VIAL IVPUSH ONE (17:02)
[2018-03-01 17:07] VITALS: BMI 24.7
[2018-03-01] MEDS ORDERED: HALOPERIDOL LACTATE 5 MG/ML IM ONE (17:08)
[2018-03-01] MEDS ORDERED: HALOPERIDOL LACTATE 5 MG/ML ONE (17:11)
--- NOTE | 2018-03-01 17:21 | PDOC ---
History of Present Illness - General Chief Complaint: Nausea/Vomiting Stated Complaint: trouble breathing Time Seen by Provider: 03/01/18 16:57 - History of Present Illness Initial Comments: 03/01/18 17:16 Ms. Rincon is a 23 yo female w/ pmh of cannabiniod hyperemesis who presents for evaluation of nausea and vomiting. Patient reports she smokes marijuana daily and that she drank a lot last night. Reports waking up with stomach pain, nausea , and vomiting. Patient had multiple vomiting episodes all day. Reports taking a warm shower improved symptoms. Elected to call EMS as patient continued vomiting. The patient denies chest pain, shortness of breath, headache and dizziness. Denies fever, chills, diarrhea and constipation. Denies dysuria, frequency, urgency and hematuria. Past History - Past Medical History Allergies/Adverse Reactions: Allergies Allergy/AdvReac Type Severity Reaction Status Date / Time No Known Allergies Allergy Verified 03/01/18 17:07 Home Medications: Ambulatory Orders Meclizine HCl [Antivert -] 25 mg PO DAILY #7 tablet 03/01/18 CVA: No COPD: No DVT: No - Reproductive History Therapeutic (s) & number: Yes (2) - Immunization History Immunization Up to Date: Yes (no flu shot) - Suicide/Smoking/Psychosocial Hx Smoking History: Never smoked Have you smoked in the past 12 months: No Information on smoking cessation initiated: No Hx Alcohol Use: No Drug/Substance Use Hx: No Substance Use Type: Marijuana Review of Systems - Review of Systems Comments:: 03/01/18 17:20 GENERAL/CONSTITUTIONAL: No fever or chills. No weakness. HEAD, EYES, EARS, NOSE AND THROAT: No change in vision. No ear pain or discharge. No sore throat. CARDIOVASCULAR: No chest pain or shortness of breath RESPIRATORY: No cough, wheezing, or hemoptysis. GASTROINTESTINAL: +Diffuse abdominal pain with nausea/vomiting as described. No diarrhea or constipation. GENITOURINARY: No dysuria, frequency, or change in urination. MUSCULOSKELETAL: No joint or muscle swelling or pain. No neck or back pain. SKIN: No rash NEUROLOGIC: No headache, vertigo, loss of consciousness, or change in strength/ sensation. ENDOCRINE: No increased thirst. No abnormal weight change HEMATOLOGIC/LYMPHATIC: No anemia, easy bleeding, or history of blood clots. ALLERGIC/IMMUNOLOGIC: No hives or skin allergy. *Physical Exam - Vital Signs Last Vital Signs Temp Pulse Resp BP Pulse Ox 97.7 F 78 24 H 153/90 100 03/01/18 17:04 03/01/18 17:04 03/01/18 17:04 03/01/18 17:04 03/01/18 17:04 - Physical Exam Comments: 03/01/18 17:21 GENERAL: Awake, alert, and fully oriented, in no acute distress HEAD: No signs of trauma, normocephalic, atraumatic EYES: PERRLA, EOMI, sclera anicteric, conjunctiva clear ENT: Auricles normal inspection, hearing grossly normal, nares patent, oropharynx clear without exudates. Moist mucosa NECK: Normal ROM, supple, no lymphadenopathy, JVD, or masses LUNGS: No distress, speaks full sentences, clear to auscultation bilaterally HEART: Regular rate and rhythm, normal S1 and S2, no murmurs, rubs or gallops, peripheral pulses normal and equal bilaterally. ABDOMEN: +Diffuse abdominal discomfort to palpation. Soft, normoactive bowel sounds. No guarding, no rebound. No masses EXTREMITIES: Normal inspection, Normal range of motion, no edema. No clubbing or cyanosis. NEUROLOGICAL: Cranial nerves II through XII grossly intact. Normal speech, normal gait, no focal sensorimotor deficits SKIN: Warm, Dry, normal turgor, no rashes or lesions noted. Moderate Sedation - Procedure Monitoring Vital Signs: Procedure Monitoring Vital Signs Temperature 97.7 F 03/01/18 17:04 Pulse Rate 78 03/01/18 17:04 Respiratory Rate 24 H 03/01/18 17:04 Blood Pressure 153/90 03/01/18 17:04 O2 Sat by Pulse Oximetry (%) 100 03/01/18 17:04 ED Treatment Course - LABORATORY CBC & Chemistry Diagram: 03/01/18 17:30 03/01/18 17:30 Medical Decision Making - Medical Decision Making 03/01/18 17:41 Ms. Rincon is a 23 yo female w/ pmh as described who presents for evaluation of symptoms c/w cannabinoid hyperemesis. Patient workup started with labs for r/o electrolyte abnormality or infectious process. EKG ordered for cardiac evaluation. Patient given 1L NS and haldol for symptomatic relief. Patient shows poor insight into condition and denies marijuana as cause of vomiting despite repeated attempts to educate. 03/01/18 18:14 Patient EKG concerning for possible biphasic pattern in V2/V3. Repeat EKG reveals persistent in V3. Evaluation of previous EKG reveals this is not greatly changed from previous. Cardiac panel added on to patient labs. 03/01/18 18:54 Labs grossly wnl. Patient will be observed in ED w/ repeat troponin at 3 hrs. Patient signed out to Dr. Smith for further evaluation. *DC/Admit/Observation/Transfer Diagnosis at time of Disposition: Nausea and vomiting Qualifiers: Vomiting type: unspecified Vomiting Intractability: unspecified Qualified Code( s): R11.2 - Nausea with vomiting, unspecified - Discharge Dispostion Disposition: HOME Condition at time of disposition: Stable - Prescriptions Prescriptions: Meclizine HCl [Antivert -] 25 mg PO DAILY #7 tablet - Referrals Referrals: ON STAFF,NOT [Primary Care Provider] - - Patient Instructions Printed Discharge Instructions: DI for Nausea -- Adult, DI for Vomiting -- Adult Additional Instructions: You were seen in the ED for complaints of nausea and vomiting. In the ED you were evaluated with labwork and treated with medication and fluids. You showed symptomatic improvement. There does not appear to be an acute need for immediate hospitalization. You are advised to follow up with your Primary Care Physician within 1 week. You were given a prescription for anti-nausea medication. Return to the ED immediately if you experience worsening nausea, vomiting blood , abdominal pain, bloody diarrhea, chest pain or shortness of breath - Post Discharge Activity
[2018-03-01 17:53] LABS: HEMATOCRIT 40.2 % (32.4-45.2); HEMOGLOBIN 14.2 GM/dL (10.7-15.3); LYMPH % 13.3 % (8-40); MCH 30.9 pg (25.7-33.7); MCHC 35.4 g/dl (32.0-36.0); MEAN CELL VOLUME 87.3 fl (80-96); MEAN PLT VOLUME 10.1 fl (7.5-11.1); MONO % 3.2 % (3.8-10.2); NEUT % 82.5 % (42.8-82.8); PLATELET COUNT 248 K/MM3 (134-434); RBC 4.61 M/mm3 (3.60-5.2); WHITE BLOOD COUNT 6.5 K/mm3 (4.0-10.0)
[2018-03-01] MEDS ORDERED: ACETAMINOPHEN INJECTION 100 ML IVPB ONE (18:34)
[2018-03-01] MEDS ORDERED: ACETAMINOPHEN 1000 MG/100 ML VIAL (NON FORMULARY) IVPB ONE (18:34)
[2018-03-01 18:35] LABS: ALBUMIN 4.3 g/dl (3.4-5.0); ALK PHOS 61 U/L (45-117); ANION GAP 18 MMOL/L (8-16); BLOOD UREA NITROGEN 10 mg/dL (7-18); CALCIUM 9.5 mg/dL (8.5-10.1); CHLORIDE 108 mmol/L (98-107); CO2 15 mmol/L (21-32); GLUCOSE,RANDOM 125 mg/dL (74-106); LIPASE 75 U/L (73-393); POTASSIUM 3.4 mmol/L (3.5-5.1); SGOT/AST 25 U/L (15-37); SGPT/ALT 19 U/L (13-61); SODIUM 141 mmol/L (136-145); TOT PROT 7.7 g/dl (6.4-8.2)
[2018-03-01] MEDS ORDERED: MAGNESIUM SULF 50% (8.12 MEQ/2 ML-1 GM VIAL) IVPB ONE (19:28)
[2018-03-01] MEDS ORDERED: POTASSIUM CHLORIDE TABS 20 MEQ TABLET.ER (FP) PO ONE ×2 (19:28→20:13)
--- NOTE | 2018-03-01 19:31 | PDOC ---
*Physical Exam - Vital Signs Last Vital Signs Temp Pulse Resp BP Pulse Ox 97.7 F 78 24 H 153/90 100 03/01/18 17:04 03/01/18 17:04 03/01/18 17:04 03/01/18 17:04 03/01/18 17:50 ED Treatment Course - LABORATORY CBC & Chemistry Diagram: 03/01/18 17:30 03/01/18 17:30 - ADDITIONAL ORDERS Additional order review: Laboratory Results 03/01/18 03/01/18 17:30 17:30 Sodium 141 Potassium 3.4 L Chloride 108 H Carbon Dioxide 15 L Anion Gap 18 H BUN 10 Creatinine 1.0 Creat Clearance w eGFR > 60 Random Glucose 125 H Calcium 9.5 Total Bilirubin 1.0 AST 25 ALT 19 Alkaline Phosphatase 61 Creatine Kinase 199 H Creatine Kinase Index 0.7 CK-MB (CK-2) 1.5 Troponin I < 0.02 Total Protein 7.7 Albumin 4.3 Lipase 75 Serum , Qual Negative 03/01/18 17:30 RBC 4.61 MCV 87.3 MCHC 35.4 RDW 14.0 MPV 10.1 Neutrophils % 82.5 Lymphocytes % 13.3 D Monocytes % 3.2 L Eosinophils % 0.0 Basophils % 1.0 - Medications Given in the ED: ED Medications Discontinued Medications Generic Name Dose Route Start Last Admin Trade Name Carlin PRN Reason Stop Dose Admin Haloperidol 5 mg 03/01/18 17:08 03/01/18 17:00 Haldol Injection (Fast Acting) - IM 03/01/18 17:09 5 mg ONCE ONE Administration Sodium Chloride 1,000 mls @ 1,000 mls/hr 03/01/18 17:02 03/01/18 17:40 Normal Saline - IV 03/01/18 18:01 1,000 mls/hr ASDIR STA Administration Ondansetron HCl 4 mg 03/01/18 17:02 03/01/18 18:16 Zofran Injection IVPUSH 03/01/18 17:03 Not Given ONCE ONE Medical Decision Making - Medical Decision Making 03/01/18 19:30 I picked pt up on signout. Her K+ is minimally low; will order Mag IV and K+ PO. She is also awaiting 3 hr cardiac trop. 03/02/18 05:37 2nd trop normal. Pt still has nausea and some dry heaving. She was given D50 and she was discharged. *DC/Admit/Observation/Transfer Diagnosis at time of Disposition: Nausea and vomiting - Discharge Dispostion Disposition: HOME Condition at time of disposition: Stable - Prescriptions Prescriptions: Meclizine HCl [Antivert -] 25 mg PO DAILY #7 tablet - Referrals Referrals: ON STAFF,NOT [Primary Care Provider] - - Patient Instructions Printed Discharge Instructions: DI for Nausea -- Adult, DI for Vomiting -- Adult Additional Instructions: You were seen in the ED for complaints of nausea and vomiting. In the ED you were evaluated with labwork and treated with medication and fluids. You showed symptomatic improvement. There does not appear to be an acute need for immediate hospitalization. You are advised to follow up with your Primary Care Physician within 1 week. You were given a prescription for anti-nausea medication. Return to the ED immediately if you experience worsening nausea, vomiting blood , abdominal pain, bloody diarrhea, chest pain or shortness of breath - Post Discharge Activity
[2018-03-01] MEDS ORDERED: MAGNESIUM 1GM/D5W - 2 GM/200 ML IVPB IVPB ONE (20:13)
[2018-03-01] MEDS ORDERED: METOCLOPRAMIDE HCL INJECTION 10 MG/2 ML VIAL ONE (20:14)
[2018-03-01] MEDS ORDERED: METOCLOPRAMIDE HCL INJECTION 10 MG/2 ML VIAL IVPUSH ONE (20:14)
[2018-03-01 23:30] VITALS: BP 140/70; PULSE 62; TEMP 98.4
[2018-03-01] MEDS ORDERED: METOCLOPRAMIDE HCL 10 MG TABLET (FP) PO ONE (23:51)
--- NOTE | 2018-03-01 23:54 | PDOC ---
*Physical Exam - Vital Signs Last Vital Signs Temp Pulse Resp BP Pulse Ox 98.4 F 62 18 140/70 100 03/01/18 23:28 03/01/18 23:28 03/01/18 23:28 03/01/18 23:28 03/01/18 23:28 ED Treatment Course - LABORATORY CBC & Chemistry Diagram: 03/01/18 17:30 03/01/18 17:30 - ADDITIONAL ORDERS Additional order review: Laboratory Results 03/01/18 03/01/18 03/01/18 21:45 17:30 17:30 Sodium 141 Potassium 3.4 L Chloride 108 H Carbon Dioxide 15 L Anion Gap 18 H BUN 10 Creatinine 1.0 Creat Clearance w eGFR > 60 Random Glucose 125 H Calcium 9.5 Total Bilirubin 1.0 AST 25 ALT 19 Alkaline Phosphatase 61 Creatine Kinase 199 H Creatine Kinase Index 0.7 CK-MB (CK-2) 1.5 Troponin I < 0.02 < 0.02 Total Protein 7.7 Albumin 4.3 Lipase 75 Serum , Qual Negative 03/01/18 17:30 RBC 4.61 MCV 87.3 MCHC 35.4 RDW 14.0 MPV 10.1 Neutrophils % 82.5 Lymphocytes % 13.3 D Monocytes % 3.2 L Eosinophils % 0.0 Basophils % 1.0 - Medications Given in the ED: ED Medications Discontinued Medications Generic Name Dose Route Start Last Admin Trade Name Jeanq PRN Reason Stop Dose Admin Acetaminophen 1,000 mg 03/01/18 18:34 03/01/18 19:00 Ofirmev Injection - IVPB 03/01/18 18:35 1,000 mg ONCE ONE Administration Haloperidol 5 mg 03/01/18 17:08 03/01/18 17:00 Haldol Injection (Fast Acting) - IM 03/01/18 17:09 5 mg ONCE ONE Administration Sodium Chloride 1,000 mls @ 1,000 mls/hr 03/01/18 17:02 03/01/18 17:40 Normal Saline - IV 03/01/18 18:01 1,000 mls/hr ASDIR STA Administration Magnesium Sulfate 2 gm 03/01/18 19:28 03/01/18 20:24 Magnesium Sulfate IVPB 03/01/18 19:29 2 gm ONCE ONE Administration Metoclopramide HCl 10 mg 03/01/18 20:14 03/01/18 20:24 Reglan Injection - IVPUSH 03/01/18 20:15 10 mg ONCE ONE Administration Ondansetron HCl 4 mg 03/01/18 17:02 03/01/18 18:16 Zofran Injection IVPUSH 03/01/18 17:03 Not Given ONCE ONE Potassium Chloride 40 meq 03/01/18 19:28 03/01/18 20:24 K-Dur - PO 03/01/18 19:29 40 meq ONCE ONE Administration Medical Decision Making - Medical Decision Making 03/01/18 23:49 Patient given Reglan. Repeat trop negative Patient assessed, no acute findings. *DC/Admit/Observation/Transfer Diagnosis at time of Disposition: Nausea and vomiting - Discharge Dispostion Disposition: HOME Condition at time of disposition: Stable Decision to Admit order: No - Referrals Referrals: ON STAFF,NOT [Primary Care Provider] - - Patient Instructions Printed Discharge Instructions: DI for Vomiting -- Adult, DI for Nausea -- Adult Additional Instructions: You were seen in the ED for complaints of nausea and vomiting. In the ED you were evaluated with labwork and treated with medication and fluids. You showed symptomatic improvement. There does not appear to be an acute need for immediate hospitalization. You are advised to follow up with your Primary Care Physician within 1 week. You were given a prescription for anti-nausea medication. Return to the ED immediately if you experience worsening nausea, vomiting blood , abdominal pain, bloody diarrhea, chest pain or shortness of breath - Post Discharge Activity
[2018-03-02] MEDS ORDERED: DEXTROSE 50%-WATER - 25 GM/50 ML VIAL IVPUSH ONE (00:07)
[2018-03-02] MEDS ORDERED: METOCLOPRAMIDE HCL 10 MG TABLET (FP) PO ONE (00:56)
[2018-03-02] MEDS ORDERED: DEXTROSE 50%-WATER 25 GM/50 ML DISP.SYRIN ONE (00:56)
--- NOTE | 2018-03-02 08:40 | EKG ---
Test Reason : Blood Pressure : / mmHG Vent. Rate : 056 BPM Atrial Rate : 056 BPM P-R Int : 142 ms QRS Dur : 086 ms QT Int : 512 ms P-R-T Axes : 010 070 068 degrees QTc Int : 494 ms SINUS BRADYCARDIA PROLONGED QT ABNORMAL ECG WHEN COMPARED WITH ECG OF 14-JUN-2017 14:47, T WAVE INVERSION NOW EVIDENT IN ANTERIOR LEADS Confirmed by ZULEMA BELTRAN, NATHANIEL ([id number]) on 03/02/2018 8:40:04 AM Referred By: Confirmed By:NATHANIEL POOLE MD
== END 2018-03-02 01:09 | disposition home or self-care (01) ==
LOC: JER 16:52
PROC: 3E0337Z Introduction of Electrolytic and Water Balance Substance into Peripheral Vein, Percutaneous Approach (ICD-10-PCS; principal; 2018-03-01)
PROC: 3E023NZ Introduction of Analgesics, Hypnotics, Sedatives into Muscle, Percutaneous Approach (ICD-10-PCS; 2018-03-01)
PROC: 3E033GC Introduction of Other Therapeutic Substance into Peripheral Vein, Percutaneous Approach (ICD-10-PCS; 2018-03-01)
PROC: 3E033GC Introduction of Other Therapeutic Substance into Peripheral Vein, Percutaneous Approach (ICD-10-PCS; 2018-03-01)
PROC: 3E033GC Introduction of Other Therapeutic Substance into Peripheral Vein, Percutaneous Approach (ICD-10-PCS; 2018-03-01)
PROC: 3E033NZ Introduction of Analgesics, Hypnotics, Sedatives into Peripheral Vein, Percutaneous Approach (ICD-10-PCS; 2018-03-01)
DX: F12.188 Cannabis abuse with other cannabis-induced disorder (principal); F10.10 Alcohol abuse, uncomplicated; E87.6 Hypokalemia; Y90.9 Presence of alcohol in blood, level not specified
CPT/HCPCS: 36415; 80053; 82550; 82553; 83690; 84484; 84703; 85025; 93005; 93010; 96361; 96372; 96374; 96375; 99285-25; J0131; J7030

== ENCOUNTER 2018-04-20 19:28 | Emergency (ER) | payer OTHER ==
[2018-04-20 19:41] VITALS: BP 143/78; PULSE 76; TEMP 98.2; BMI 26.0
--- NOTE | 2018-04-20 19:42 | PDOC ---
History of Present Illness - General Chief Complaint: Nausea/Vomiting Stated Complaint: SICK Time Seen by Provider: 04/20/18 19:42 History Source: Patient Exam Limitations: No Limitations - History of Present Illness Initial Comments: Pt is a 23 yo F (1 miscarriage, 2 abortions), with history of cannabinoid induced vomiting, who is presenting with hyperemesis x10 days. Pt states she has had multiple episodes of NBNB vomiting per day, along with loose brown stool when she vomits. She complains of generalized diffuse abdominal pain after vomiting. She states she has had trouble tolerating PO food and fluid intake. Pt denies any lower back cramping or vaginal bleeding. Pt states she went to [facility] ER yesterday, and that they provided her with "morphine, gave her a shot, and sent her home with Percocet". She is currently requesting morphine. Pt denies any fevers/chills, headache, vision changes, syncope, chest pain, palpitations, SOB, urinary symptoms, constipation, or leg swelling. Social: Pt denies any cigarette or alcohol use. Pt continues to use THC every day. Pt denies any recent travel or sick contacts. Surgical: surgical abortions. Family: no relevant history. 04/20/18 21:06 Past History - Travel Traveled outside of the country in the last 30 days: No Close contact w/someone who was outside of country & ill: No - Past Medical History Allergies/Adverse Reactions: Allergies Allergy/AdvReac Type Severity Reaction Status Date / Time No Known Allergies Allergy Verified 03/01/18 17:07 Home Medications: Ambulatory Orders Meclizine HCl [Antivert -] 25 mg PO DAILY #7 tablet 03/01/18 CVA: No COPD: No DVT: No - Reproductive History Therapeutic (s) & number: Yes (2) - Immunization History Immunization Up to Date: Yes (no flu shot) - Suicide/Smoking/Psychosocial Hx Smoking History: Never smoked Have you smoked in the past 12 months: No Information on smoking cessation initiated: No Hx Alcohol Use: No Drug/Substance Use Hx: No Substance Use Type: Marijuana Review of Systems - Review of Systems Able to Perform ROS?: Yes Is the patient limited Kyrgyz proficient: No Constitutional: Yes: Weight Stable. No: Chills, Diaphoresis, Fever, Loss of Appetite, Malaise, Weakness HEENTM: No: Recent change in vision, Double Vision, Nose Pain, Nose Congestion, Throat Pain, Throat Swelling, Difficulty Swallowing Respiratory: No: Cough, Shortness of Breath Cardiac (ROS): No: Chest Pain, Edema, Irregular Heart Rate, Lightheadedness, Palpitations, Syncope, Chest Tightness ABD/GI: Yes: Diarrhea, Nausea, Poor Appetite, Poor Fluid Intake, Vomiting. No: Abdominal Distended, Constipated : No: Burning, Dysuria, Pain, Urgency Musculoskeletal: No: Back Pain, Joint Pain, Muscle Pain, Muscle Weakness Integumentary: No: Rash Neurological: No: Headache, Numbness, Seizure, Weakness, Unsteady Gait, Dizziness Psychiatric: No: Sleep Pattern Change, Change in Appetite Endocrine: No: Increased Urine, Change in Weight Hematologic/Lymphatic: No: Anemia, Blood Clots, Easy Bleeding, Easy Bruising All Other Systems: Reviewed and Negative *Physical Exam - Vital Signs Last Vital Signs Temp Pulse Resp BP Pulse Ox 98.2 F 76 19 143/78 100 04/20/18 19:35 04/20/18 19:35 04/20/18 19:35 04/20/18 19:35 04/20/18 19:35 - Physical Exam Comments: BGM at bedside 147 Vitals stable, pt afebrile. Pt vomiting frothy sputum, normal body habitus. PE showed pt alert and oriented. emergency medical technician basic generally intact, muscular strength and sensation intact. Eyes PERRLA, EOMI. Oropharynx without erythema or exudates, no LAD b/l. Moist oral mucosa, no decreased skin turgor. No nasal congestion, hearing intact. Clear heart sounds, S1/S2, no JVD, b/l pedal edema, or heart murmur. Clear lung sounds, no respiratory distress, wheezes, crackles, or accessory muscle use. No abdominal or CVA tenderness to palpation, no rebound, no guarding. Abdomen soft, non-distended, and with normoactive bowel sounds. Skin without jaundice or rash. Except for vomiting, normal benign PE. 04/20/18 21:52 Moderate Sedation - Procedure Monitoring Vital Signs: Procedure Monitoring Vital Signs Temperature 98.2 F 04/20/18 19:35 Pulse Rate 76 04/20/18 19:35 Respiratory Rate 19 04/20/18 19:35 Blood Pressure 143/78 04/20/18 19:35 O2 Sat by Pulse Oximetry (%) 100 04/20/18 19:35 ED Treatment Course - LABORATORY CBC & Chemistry Diagram: 04/20/18 19:41 04/20/18 19:41 Medical Decision Making - Medical Decision Making Pt was seen at bedside, also will be seen by attending Dr. Gomez. Pt presenting with hyperemesis x10 days. Pt states she has had multiple episodes of NBNB vomiting per day, along with loose brown stool when she vomits. She complains of generalized diffuse abdominal pain after vomiting. She states she has had trouble tolerating PO food and fluid intake. Pt denies any lower back cramping or vaginal bleeding. Pt states she went to [facility] ER yesterday, and that they provided her with "morphine, gave her a shot, and sent her home with Percocet". She is currently requesting morphine. Pt denies any fevers/ chills, headache, vision changes, syncope, chest pain, palpitations, SOB, urinary symptoms, constipation, or leg swelling. BGM at bedside 147 Vitals stable, pt afebrile. Pt vomiting frothy sputum, normal body habitus. PE showed pt alert and oriented. emergency medical technician basic generally intact, muscular strength and sensation intact. Eyes PERRLA, EOMI. Oropharynx without erythema or exudates, no LAD b/l. No nasal congestion, hearing intact. Clear heart sounds, S1/S2, no JVD, b/l pedal edema, or heart murmur. Clear lung sounds, no respiratory distress, wheezes, crackles, or accessory muscle use. No abdominal or CVA tenderness to palpation, no rebound, no guarding. Abdomen soft, non-distended, and with normoactive bowel sounds. Skin without jaundice or rash. *Pt was seen on camera inducing vomiting with her fingers multiple times. Pt was advised that cyclical nausea and vomiting likely due to consistent marijuana use. Pt has poor insight into condition and is refusing to accept education on stopping THC use. Pt has been seen in the ER before for similar complaints. Pt told she cannot receive morphine or haldol due to risk to fetus, regardless of her plans to terminate the . Likely hyperemesis 2/2 to and THC use. Will r/o other signs of infection and monitor beta-hcg (r/o influenza, electrolyte abnormalities). Ordered work-up including CBC, CMP, beta-hcg, Mg, rapid influenza. Provided 4 mg IV zofran, 1 g ofirmev, and 1 L IV NS for improvement of discomfort and nausea. Will continue to reassess pt and monitor for symptomatic improvement. ECG: NSR, intervals WNL. Biphasic T waves in V2 and V3, present on prior ECG. No significant changes from prior ECG. 04/20/18 20:51 Pt had continued vomiting. Provided 10 mg IV reglan and 25 mg IV benadryl. Pt seen inducing vomiting with her fingers again on camera, and then telling nursing staff she is vomiting. Pt asked for PO water. CBC WNL. Influenza negative. 04/20/18 21:09 Beta-hcg 23017, consistent with dates. CMP: K 3.3, otherwise WNL Providing 20 mg PO K-dur, 30 mg PO maalox, and 20 mg PO viscous lidocaine. 04/20/18 21:23 Pt continued to induce vomiting, seen on camera. Pt continuing to ask for morphine and percocet. Pt allowed staff to remove her IV, but continued to cause a scene in the department. Security was called to escort pt to waiting room to wait for a cab. Pt advised to follow up with her scheduled appointments. Strict return precautions provided. Pt signed discharge paperwork. 04/20/18 21:50 *DC/Admit/Observation/Transfer Diagnosis at time of Disposition: Hyperemesis gravidarum, Cannabinoid hyperemesis syndrome Nausea and vomiting Qualifiers: Vomiting type: cyclical vomiting Vomiting Intractability: non-intractable Qualified Code(s): G43.A0 - Cyclical vomiting, not intractable - Discharge Dispostion Disposition: HOME Condition at time of disposition: Improved Decision to Admit order: No - Referrals Referrals: [facility] [place] [Provider Group] [facility] [Outside] - Patient Instructions Printed Discharge Instructions: DI for Hyperemesis Gravidarum Additional Instructions: You were seen in the ER today for nausea and vomiting. The results of your labs today showed low potassium, which we provided you with more potassium. Please follow-up with your primary care doctor and [facility] for your [facility]NAGER appointments to discuss your visit and make sure your symptoms have improved. Please return to the ER if you have any worsening pain, development of fevers or chills that does not improve with tylenol, loss of consciousness, inability to tolerate food or fluids, or any other concerns. Please stop smoking marijuana, as it is making your cyclic vomiting symptoms worse. You should also stop inducing vomiting, as it will make you feel worse. Please continue taking your zofran at home, and avoid opiate medications until you are no longer , as it can cause harm to the fetus. Please try to continue drinking fluids at home as tolerated and stay hydrated. - Post Discharge Activity
[2018-04-20] MEDS ORDERED: SODIUM CHLORIDE 1,000 ML IV STA (19:48)
[2018-04-20] MEDS ORDERED: ONDANSETRON 4 MG/2 ML VIAL IVPUSH ONE (19:48)
[2018-04-20] MEDS ORDERED: ONDANSETRON 4 MG/2 ML VIAL ONE (19:57)
[2018-04-20] MEDS ORDERED: ACETAMINOPHEN 1000 MG/100 ML VIAL (NON FORMULARY) IVPB ONE (20:06)
[2018-04-20] MEDS ORDERED: ACETAMINOPHEN INJECTION 100 ML IVPB ONE (20:18)
[2018-04-20] MEDS ORDERED: METOCLOPRAMIDE HCL INJECTION 10 MG/2 ML VIAL IVPUSH ONE (20:18)
[2018-04-20] MEDS ORDERED: METOCLOPRAMIDE HCL INJECTION 10 MG/2 ML VIAL ONE (20:23)
[2018-04-20 20:38] LABS: BASO % 0.5 % (0-2.0); HEMATOCRIT 39.3 % (32.4-45.2); HEMOGLOBIN 13.7 GM/dL (10.7-15.3); LYMPH % 9.4 % (8-40); MCH 31.3 pg (25.7-33.7); MCHC 34.9 g/dl (32.0-36.0); MEAN CELL VOLUME 89.6 fl (80-96); MONO % 3.3 % (3.8-10.2); NEUT % 86.8 % (42.8-82.8); PLATELET COUNT 208 K/MM3 (134-434); RBC 4.38 M/mm3 (3.60-5.2); RDW 13.4 % (11.6-15.6); WHITE BLOOD COUNT 9.3 K/mm3 (4.0-10.0)
--- NOTE | 2018-04-20 20:38 | PDOC ---
Attending Attestation - HPI HPI: Pt actively putting fingers down her throat upon exam to induce emesis. - Physicial Exam PE: 04/20/18 20:58 GENERAL: Well-appearing, well-nourished. No apparent distress. HEENT: Normocephalic, atraumatic. PERRL, EOM intact. CARDIOVASCULAR: Normal S1, S2. Regular rate and rhythm. PULMONARY: Clear to auscultation bilaterally. +ABDOMEN: Complains of epigastric pain. Soft, non-distended. EXTREMITIES: Normal ROM in all four extremities. No gross deformities. SKIN: Warm, dry. No rash NEUROLOGICAL: No focal neurological deficits. <Bobby Roberson - Last Filed: 04/20/18 20:57> - Resident Resident Name: Marlee Marks - ED Attending Attestation I have performed the following: I have examined & evaluated the patient, The case was reviewed & discussed with the resident, I agree w/resident's findings & plan, Exceptions are as noted - HPI HPI: 04/20/18 20:36 23 yo female who uses marijuana daily and is 6 weeks p/w persistent vomiting - Medical Decision Making 04/20/18 21:40 pt uses marijuana daily and has cyclical vomiting she is also about 6 weeks . She has no pelvic cramping and no vaginal bleeding 04/20/18 21:46 imp hyperemesis, pt given anti emetics and IVF plan take anti emetics and follow up with [facility] <Malinda Gomez - Last Filed: 04/20/18 21:46> Attestations - Attestations 04/20/18 20:59 Documentation prepared by Bobby Roberson, acting as medical doctor md for Malinda Gomez MD. <Bobby Roberson - Last Filed: 04/20/18 20:57>
[2018-04-20 21:18] LABS: ALBUMIN 3.8 g/dl (3.4-5.0); ALK PHOS 52 U/L (45-117); ANION GAP 20 MMOL/L (8-16); BILIRUBIN,TOTAL 0.7 mg/dL (0.2-1); BLOOD UREA NITROGEN 6 mg/dL (7-18); CALCIUM 9.3 mg/dL (8.5-10.1); CHLORIDE 106 mmol/L (98-107); CO2 14 mmol/L (21-32); GLUCOSE,RANDOM 127 mg/dL (74-106); POTASSIUM 3.3 mmol/L (3.5-5.1); SGOT/AST 31 U/L (15-37); SGPT/ALT 17 U/L (13-61); SODIUM 140 mmol/L (136-145); TOT PROT 7.2 g/dl (6.4-8.2)
[2018-04-20] MEDS ORDERED: POTASSIUM CHLORIDE TABS 20 MEQ TABLET.ER (FP) PO ONE ×2 (21:21→21:27)
[2018-04-20] MEDS ORDERED: MAG HYDROX/AL HYDROX/SIMETH 30 ML UNIT-DOSE CUP PO ONE (21:22)
[2018-04-20] MEDS ORDERED: LIDOCAINE VISCOUS 2% ORAL/TOP 20 ML UNIT-DOSE CUP MM ONE (21:22)
[2018-04-20] MEDS ORDERED: MAG HYDROX/AL HYDROX/SIMETH 30 ML UNIT-DOSE CUP ONE (21:27)
[2018-04-20] MEDS ORDERED: LIDOCAINE VISCOUS 2% ORAL/TOP 20 ML UNIT-DOSE CUP ONE (21:27)
--- NOTE | 2018-04-22 13:50 | EKG ---
Test Reason : Blood Pressure : / mmHG Vent. Rate : 072 BPM Atrial Rate : 072 BPM P-R Int : 152 ms QRS Dur : 082 ms QT Int : 438 ms P-R-T Axes : 023 072 060 degrees QTc Int : 479 ms POOR DATA QUALITY, INTERPRETATION MAY BE ADVERSELY AFFECTED NORMAL SINUS RHYTHM MODERATE VOLTAGE CRITERIA FOR LVH, MAY BE NORMAL VARIANT BORDERLINE ECG WHEN COMPARED WITH ECG OF 01-MAR-2018 18:08, NO SIGNIFICANT CHANGE WAS FOUND Confirmed by MD Duong, Tyrese ([id number]) on 04/22/2018 1:49:54 PM Referred By: Confirmed By:Tyrese Watters MD
== END 2018-04-20 21:52 | disposition home or self-care (01) ==
LOC: JER 19:28
DX: O26.891 Other specified pregnancy related conditions, first trimester (principal); O21.0 Mild hyperemesis gravidarum; F12.10 Cannabis abuse, uncomplicated; F12.19 Cannabis abuse with unspecified cannabis-induced disorder; Z3A.01 Less than 8 weeks gestation of pregnancy
CPT/HCPCS: 36415; 80053; 82962; 83735; 84702; 85025; 87804; 93005; 93010; 99283-25; J0131; J7030

== ENCOUNTER 2018-09-07 17:08 | Emergency (ER) | payer SELFPAY ==
[2018-09-07 17:23] VITALS: TEMP 97.5; BMI 25.4
[2018-09-07] MEDS ORDERED: ONDANSETRON 4 MG/2 ML VIAL ONE (17:36)
[2018-09-07] MEDS ORDERED: FAMOTIDINE 20 MG/50 ML IVPB 20 MG/50 ML MG IVPB ONE ×2 (17:36→17:44)
--- NOTE | 2018-09-07 17:39 | PDOC ---
History of Present Illness - General Chief Complaint: Nausea/Vomiting Stated Complaint: VOMITTING Time Seen by Provider: 09/07/18 17:38 History Source: Patient Exam Limitations: No Limitations - History of Present Illness Initial Comments: 09/07/18 18:56 23yo F with PMH SAB several months ago presenting with nausea, vomiting, stomach pain in setting of heavy alcohol consumption last night. Denies blood in the emesis, no emesis while in the department. No constitutional symptoms. Reports binge drinking on weekends. Works as a youth counsellor, emesis began at 7AM this morning and required her to spend "the whole day by the toilet." She reports emesis 20+ times, yellow in color, without blood. She has been unable to eat or drink throughout the day. Endorses some upper abdominal pain and heartburn symptoms. PMH: denies PSH: SAB, " a couple months ago" Meds: none NKDA SHX: alcohol binges and daily marijuana Past History - Travel Traveled outside of the country in the last 30 days: No Close contact w/someone who was outside of country & ill: No - Past Medical History Allergies/Adverse Reactions: Allergies Allergy/AdvReac Type Severity Reaction Status Date / Time No Known Allergies Allergy Verified 09/07/18 17:21 Home Medications: Ambulatory Orders Meclizine HCl [Antivert -] 25 mg PO DAILY #7 tablet 03/01/18 Omeprazole 20 mg PO DAILY PRN #7 tablet.dr BELLAMY 1 tab 09/07/18 CVA: No COPD: No DVT: No - Reproductive History Therapeutic (s) & number: Yes (2) - Immunization History Immunization Up to Date: Yes (no flu shot) - Suicide/Smoking/Psychosocial Hx Smoking History: Current some day smoker Have you smoked in the past 12 months: No Information on smoking cessation initiated: No Hx Alcohol Use: No Drug/Substance Use Hx: No Substance Use Type: Marijuana Review of Systems - Review of Systems Able to Perform ROS?: Yes Is the patient limited Georgian proficient: No Constitutional: No: Chills, Diaphoresis, Fever, Malaise, Night Sweats HEENTM: No: Eye Pain, Blurred Vision, Tearing, Tinnitus Respiratory: Yes: Cough (dry heaves). No: Stridor, Wheezing, Productive cough, Hemoptysis Cardiac (ROS): Yes: Palpitations ("yes I can feel my heart beat"). No: Chest Pain, Lightheadedness, Chest Tightness ABD/GI: Yes: Symptoms Reported (epigastric pain), Diarrhea, Nausea, Vomiting, Abdominal cramping. No: Abdominal Distended, Constipated : No: Burning, Dysuria, Discharge, Hematuria Musculoskeletal: No: Symptoms Reported Integumentary: No: Symptoms Reported Neurological: No: Symptoms reported All Other Systems: Reviewed and Negative *Physical Exam - Vital Signs Last Vital Signs Temp Pulse Resp BP Pulse Ox 97.5 F L 71 18 127/76 100 09/07/18 17:22 09/07/18 17:22 09/07/18 17:22 09/07/18 17:22 09/07/18 17:22 - Physical Exam Comments: 09/07/18 19:08 Vitals reviewed, stable Gen: WDWN woman, laying in bed under the sheets, crying out in pain CV: RRR, normal s1/s2, no murmurs appreciated Pulm: normal WOB, symmetrical expansion, no wheezes / rales / rhonchi Abd: soft, nondistended, tender to palpation in epigastrum, nontender in lower quadrants, no guarding, no rebound, nonperitoneal, negative tucker Skin: warm well perfused, no rashes, normal cap refill Ext: 2+ radial and DP ED Treatment Course - LABORATORY CBC & Chemistry Diagram: 09/07/18 17:50 09/07/18 17:50 Medical Decision Making - Medical Decision Making 09/07/18 18:50 23yo F with PMH SAB several months ago presenting with nausea, vomiting, stomach pain in setting of heavy alcohol consumption last night. Pt with epigastric tenderness, no blood in the emesis, no emesis while in the department. No constitutional symptoms. DDX: non-bloody gastritis 2/2 alcohol consumption vs cyclic vomiting disorder 2/2 marijuana use. Given recent alcohol consumption, gastritis appears more likely, however in a daily marijuana user with multiple presentations / episodes of n/v makes cyclic emesis another possibility. -CBC, CMP -tylenol, zofran, IVF, PPI 09/07/18 18:48 -Pt endorses continued nausea and pain -Ordered for reglan 10mg, benadryl 25mmg -CBC and CMP within normal limits Dispo: Home, PPI 09/07/18 20:11 Pt slept, feeling better, requesting food PPI ordered Ready for discharge *DC/Admit/Observation/Transfer Diagnosis at time of Disposition: Nausea and vomiting Qualifiers: Vomiting type: unspecified Vomiting Intractability: non-intractable Qualified Code(s): R11.2 - Nausea with vomiting, unspecified Gastritis Qualifiers: Gastritis type: alcoholic Chronicity: acute Gastritis bleeding: without bleeding Qualified Code(s): K29.20 - Alcoholic gastritis without bleeding - Discharge Dispostion Condition at time of disposition: Improved Decision to Admit order: No - Prescriptions Prescriptions: Omeprazole 20 mg PO DAILY PRN #7 tablet.dr BELLAMY 1 tab PRN Reason: Nausea And/Or Vomiting - Referrals - Patient Instructions Printed Discharge Instructions: DI for Nausea -- Adult, DI for Vomiting -- Adult, DI for Poor Appetite - Post Discharge Activity
[2018-09-07] MEDS ORDERED: SODIUM CHLORIDE 1,000 ML IV STA (17:43)
[2018-09-07] MEDS ORDERED: ONDANSETRON 4 MG/2 ML VIAL IVPB ONE (17:44)
[2018-09-07] MEDS ORDERED: ACETAMINOPHEN INJECTION 100 ML IVPB ONE (17:51)
[2018-09-07] MEDS ORDERED: ACETAMINOPHEN 1000 MG/100 ML VIAL (NON FORMULARY) IVPB ONE (17:53)
[2018-09-07 17:59] LABS: BASO % 0.7 % (0-2.0); HEMATOCRIT 43.7 % (32.4-45.2); HEMOGLOBIN 14.7 GM/dL (10.7-15.3); LYMPH % 18.2 % (8-40); MCH 29.4 pg (25.7-33.7); MCHC 33.6 g/dl (32.0-36.0); MEAN CELL VOLUME 87.6 fl (80-96); MEAN PLT VOLUME 9.9 fl (7.5-11.1); MONO % 4.2 % (3.8-10.2); NEUT % 76.9 % (42.8-82.8); PLATELET COUNT 217 K/MM3 (134-434); RBC 4.99 M/mm3 (3.60-5.2); RDW 14.3 % (11.6-15.6)
[2018-09-07 18:28] LABS: ALBUMIN 4.5 g/dl (3.4-5.0); BILIRUBIN,TOTAL 1.1 mg/dL (0.2-1); BLOOD UREA NITROGEN 11.4 mg/dL (7-18); CALCIUM 9.6 mg/dL (8.5-10.1); CREATININE 0.8 mg/dL (0.55-1.3); POTASSIUM 3.5 mmol/L (3.5-5.1)
[2018-09-07] MEDS ORDERED: METOCLOPRAMIDE HCL INJECTION 10 MG/2 ML VIAL IVPB ONE (18:46)
--- NOTE | 2018-09-07 18:47 | PDOC ---
Documentation entered by Sally Olivares SCRIBE, acting as scribe for Malinda Gomez MD. Malinda Gomez MD: This documentation has been prepared by the Elise saini Brenda, SCRIBE, under my direction and personally reviewed by me in its entirety. I confirm that the documentation accurately reflects all work, treatment, procedures, and medical decision making performed by me. Attending Attestation - Resident Resident Name: Jorge Fournier - ED Attending Attestation I have performed the following: I have examined & evaluated the patient, The case was reviewed & discussed with the resident, I agree w/resident's findings & plan, Exceptions are as noted - HPI HPI: 09/07/18 18:02 The patient is a 23 year old female, with no significant PMH who presents to the emergency department with alcohol intoxication. The patient reports multiple episodes of vomiting since 7:00am today. The patient also endorses nausea and upper abdominal pain. She notes drinking tequila. The patient denies chest pain, shortness of breath, headache and dizziness. Denies fever, chills, diarrhea and constipation. Denies dysuria, frequency, urgency and hematuria. Allergies: NKA Past surgical history: Denies. Social history: Occasional recreational marijuana use. Alcohol use. Denies tobacco use. PCP: [facility] [place] - Physicial Exam PE: 09/07/18 18:02 GENERAL: Well developed, well nourished. Awake and alert. No acute distress. HEENT: Normocephalic, atraumatic. PERRLA, EOMI. No conjunctival pallor. Sclera are non- icteric. Moist mucous membranes. Oropharynx is clear. NECK: Supple. Full ROM. No JVD. Carotid pulses 2+ and symmetric, without bruits. No thyromegaly. No lymphadenopathy. CARDIOVASCULAR: Regular rate and rhythm. No murmurs, rubs, or gallops. Distal pulses are 2+ and symmetric. PULMONARY: No evidence of respiratory distress. Lungs clear to auscultation bilaterally. No wheezing, rales or rhonchi. ABDOMINAL:+Epigastric tenderness. Soft. Non-distended. No rebound or guarding. No organomegaly. Normoactive bowel sounds. MUSCULOSKELETAL Normal range of motion at all joints. No bony deformities or tenderness. No CVA tenderness. EXTREMITIES: No cyanosis. No clubbing. No edema. No calf tenderness. SKIN: Warm and dry. Normal capillary refill. No rashes. No jaundice. NEUROLOGICAL: Alert, awake, appropriate. Cranial nerves 2-12 intact. No deficits to light touch and temperature in face, upper extremities and lower extremities. No motor deficits in the in face, upper extremities and lower extremities. Normoreflexic in the upper and lower extremities. Normal speech. Toes are down- going bilaterally. Gait is normal without ataxia. PSYCHIATRIC: Cooperative. Good eye contact. Appropriate mood and affect. - Medical Decision Making 09/07/18 18:46 pt receiving zofran and IVF labs reviewed and are unremarkable imp gastritis due to etoh plan d/c home with PPIs
[2018-09-07] MEDS ORDERED: METOCLOPRAMIDE HCL INJECTION 10 MG/2 ML VIAL ONE (18:56)
[2018-09-07 19:55] VITALS: BP 118/69; PULSE 58
== END 2018-09-07 20:35 | disposition home or self-care (01) ==
LOC: JER 17:08
PROC: 3E0337Z Introduction of Electrolytic and Water Balance Substance into Peripheral Vein, Percutaneous Approach (ICD-10-PCS; principal; 2018-09-07)
PROC: 3E033GC Introduction of Other Therapeutic Substance into Peripheral Vein, Percutaneous Approach (ICD-10-PCS; 2018-09-07)
PROC: 3E033NZ Introduction of Analgesics, Hypnotics, Sedatives into Peripheral Vein, Percutaneous Approach (ICD-10-PCS; 2018-09-07)
DX: R11.2 Nausea with vomiting, unspecified (principal); K29.20 Alcoholic gastritis without bleeding
CPT/HCPCS: 36415; 80053; 84703; 85025; 99283-25; J0131; J7030

== ENCOUNTER 2018-09-09 00:38 | Inpatient (IN) | payer SELFPAY | END 2018-09-11 13:00 | disposition home or self-care (01) | LOC: JER 00:38 → JERBED 08:17 → J5S 15:56 ==

== ENCOUNTER 2021-04-02 04:30 | Emergency (ER) | payer OTHER ==
[2021-04-02 05:02] VITALS: BMI 27.3
[2021-04-02] MEDS ORDERED: AMPICILLIN NA/SULBACTAM NA 3 GM in SODIUM CHLORIDE 100 ML IVPB ONE (06:46)
[2021-04-02 07:23] LABS: HEMATOCRIT 37.3 % (32.4-45.2); HEMOGLOBIN 12.5 GM/dL (10.7-15.3); MCH 30.8 pg (25.7-33.7); MCHC 33.6 g/dl (32.0-36.0); MEAN CELL VOLUME 91.7 fl (80-96); MEAN PLT VOLUME 9.4 fl (7.5-11.1); PLATELET COUNT 193 10^3/uL (134-434); RBC 4.07 M/mm3 (3.60-5.2); RDW 14.9 % (11.6-15.6); WHITE BLOOD COUNT 9.6 K/mm3 (4.0-10.0)
[2021-04-02] MEDS ORDERED: LACTATED RINGERS SOLUTION 1000 ML INFUS.BAG IV ONE (07:53)
[2021-04-02] MEDS ORDERED: morphine SULFATE 4 MG/ML VIAL IVPUSH ONE (07:53)
[2021-04-02] MEDS ORDERED: morphine SULFATE 4 MG/ML VIAL ONE (07:58)
[2021-04-02 08:00] LABS: CALCIUM 8.5 mg/dL (8.5-10.1)
[2021-04-02 08:01] LABS: ALBUMIN 3.4 g/dl (3.4-5.0); BLOOD UREA NITROGEN 6.1 mg/dL (7-18)
[2021-04-02 08:04] LABS: CREATININE 0.5 mg/dL (0.55-1.3)
[2021-04-02 08:05] LABS: TOT PROT 6.2 g/dl (6.4-8.2)
[2021-04-02] MEDS ORDERED: SODIUM CHLORIDE 0.9% 500 ML INFUS.BAG IV ONE (08:06)
[2021-04-02 09:36] LABS: ANISOCYTOSIS 0; MACROCYTOSIS 0; PLATELET ESTIMATE NORMAL
[2021-04-02 12:10] VITALS: BP 144/79; PULSE 77; TEMP 98.7
== END 2021-04-02 08:50 | disposition short-term general hospital (02) ==
LOC: JER 04:30
PROC: 3E033GC Introduction of Other Therapeutic Substance into Peripheral Vein, Percutaneous Approach (ICD-10-PCS; principal; 2021-04-02)
DX: K04.7 Periapical abscess without sinus (principal)
CPT/HCPCS: 36415; 70490-TC; 80053; 84703; 85025; 93005; 93010; 96365; 96375; 99285-25; C9803; U0003; U0005